=== PATIENT | female | born 1970 | race Caucasian/White ===

== ENCOUNTER 2016-09-25 16:05 | Inpatient (IN) | payer MEDICAID, OTHER ==
--- NOTE | 2016-09-25 17:12 | ED ---
Psych HPI - General Source: patient, RN notes reviewed Mode of arrival: ambulatory <Manuela Valdes - Last Filed: 09/25/16 19:59> <Pradip Blanco - Last Filed: 09/25/16 23:16> - General Chief Complaint: Psychiatric Symptoms Stated Complaint: psych eval Time Seen by Provider: 09/25/16 17:03 - History of Present Illness Initial Comments: 46 year old female presents emergency department chief complaint of visual hallucinations. Patient states that she was recently hospitalized. Patient states she was sent home on Haldol. Patient states at home although is causing her to have episodes of diarrhea having episodes of psychosis. Patient states she's imagining things she's having visual hallucinations. Patient does admit to history of suicidal ideation but states she is not suicidal at this time. Patient states sometimes in the med she feels as if she is hearing voices. Patient states she is an alcoholic and she has been drinking because the Haldol has caused her some any problems for her psychiatric illnesses are increasing and she does not know the difference. Patient denies any concerns for any acute medical issues.Patient denies any recent fever, chills, shortness of breath, chest pain, back pain, abdominal pain, nausea vomiting, numbness or tingling, dysuria or hematuria, constipation or diarrhea, headaches or visual changes, or any other current symptoms. (Manuela Valdes) - Related Data Home Medications Medication Instructions Recorded Confirmed Ondansetron [Zofran] 4 mg PO BID PRN 07/15/16 09/25/16 Pregabalin [Lyrica] 200 mg PO TID 08/21/16 09/25/16 Dicyclomine [Bentyl] 20 mg PO QID 08/24/16 09/25/16 Ergocalciferol [Vitamin D2 50,000 unit PO MO 08/24/16 09/25/16 (DRISDOL)] Polyethylene Glycol 3350 [Miralax] 17 gm PO BID PRN 08/24/16 09/25/16 lamoTRIgine [LaMICtal] 100 mg PO QAM 08/24/16 09/25/16 Folic Acid 1 mg PO DAILY 09/25/16 09/25/16 Hydrocortisone [Cortef] 5 mg PO HS 09/25/16 09/25/16 Hydrocortisone [Cortef] 15 mg PO QAM 09/25/16 09/25/16 Thiamine [Vitamin B-1] 100 mg PO DAILY 09/25/16 09/25/16 Previous Rx's Medication Instructions Recorded QUEtiapine [SEROquel] 300 mg PO HS #90 tab 05/30/16 Sertraline [Zoloft] 200 mg PO HS #60 tab 05/30/16 tiZANidine HCL [Zanaflex] 4 mg PO Q8HR PRN #90 tab 07/15/16 Haloperidol [Haldol] 5 mg PO TID #90 tab 08/29/16 LORazepam [Ativan] 1 mg PO TID #30 tab 08/29/16 Nicotine 14Mg/24Hr Patch [Habitrol] 1 patch TRANSDERM DAILY #30 patch 08/29/16 Pantoprazole [Protonix] 40 mg PO AC-BID tablet. 08/29/16 busPIRone HCl [Buspar] 20 mg PO TID tab 08/29/16 lamoTRIgine [LaMICtal] 300 mg PO HS tab 08/29/16 Allergies Allergy/AdvReac Type Severity Reaction Status Date / Time No Known Allergies Allergy Verified 09/25/16 18:02 Review of Systems ROS Other: All systems not noted in ROS Statement are negative. <Manuela Valdes - Last Filed: 09/25/16 19:59> ROS Other: All systems not noted in ROS Statement are negative. <Pradip Blanco - Last Filed: 09/25/16 23:16> ROS Statement: Those systems with pertinent positive or pertinent negative responses have been documented in the HPI. 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",ADRENAL INSUFFICIENCY,ULCER, HYPOGLYCEMIA, chronic back pain, herniated discs L4-L5, sponylosis spine, spurs in back, neck pain History of Any Multi-Drug Resistant Organisms: None Reported, Unobtainable Past Surgical History: Bariatric Surgery, Hernia Repair, Uterine Ablation Additional Past Surgical History / Comment(s): ROUY EN Y GASTRIC SURGERY, laparoscopy, PAIN CLINIC PROCEDURES Past Anesthesia/Blood Transfusion Reactions: No Reported Reaction Past Psychological History: Anxiety, Bipolar, Depression Additional Psychological History / Comment(s): HX ALCOHOL AND RX DRUG ABUSE Smoking Status: Unknown if ever smoked Past Alcohol Use History: Unable to Obtain Additional Past Alcohol Use History / Comment(s): Pt started smoking as a teen and is a 2 ppd smoker. Past Drug Use History: Unable to Obtain - Past Family History Mother Family Medical History: Chest Pain / Angina, Myocardial Infarction (AR) Additional Family Medical History / Comment(s): Mother is an alcoholic. She has heart problems. Had open heart surgery. Father Additional Family Medical History / Comment(s): Father is an alcoholic. Brother(s) Family Medical History: Cancer Additional Family Medical History / Comment(s): TESTICULAR. <Manuela Valdes - Last Filed: 09/25/16 19:59> General Exam Limitations: no limitations Head exam: Present: atraumatic, normocephalic, normal inspection Neck exam: Present: normal inspection. Absent: tenderness, meningismus, lymphadenopathy Respiratory exam: Present: normal lung sounds bilaterally. Absent: respiratory distress, wheezes, rales, rhonchi, stridor Cardiovascular Exam: Present: regular rate, normal rhythm, normal heart sounds. Absent: systolic murmur, diastolic murmur, rubs, gallop, clicks GI/Abdominal exam: Present: soft, normal bowel sounds. Absent: distended, tenderness, guarding, rebound, rigid Neurological exam: Present: alert, oriented X3, CN II-XII intact. Absent: motor sensory deficit Psychiatric exam: Present: anxious Skin exam: Present: warm, dry, intact, normal color. Absent: rash <Manuela Valdes - Last Filed: 09/25/16 19:59> Procedures <Manuela Valdes - Last Filed: 09/25/16 19:59> <Pradip Blanco - Last Filed: 09/25/16 23:16> - Procedures Initial comment: This case will be signed out to Dr. Blanco. (Manuela Valdes) Medical Decision Making <Manuela Valdes - Last Filed: 09/25/16 19:59> <Pradip Blanco - Last Filed: 09/25/16 23:16> - Medical Decision Making 46-year-old female presents to the emergency department with a chief complaint of visual hallucinations. (Manuela Valdes) The patient was evaluated by the psychiatric nurse who spoke with the psychiatrist. The patient be admitted to 3 W. The patient signing in. Psychiatric nurse discussed with the psychiatrist her current medication list and he states the patient can have her normal evening dose of medications but at this time however all will not be given. Dr. Blanco (Pradip Blanco) - Lab Data Lab Results 09/25/16 Range/Units 17:14 Urine Opiates Screen Not Detected (NotDetected) Ur Oxycodone Screen Not Detected (NotDetected) Urine Methadone Screen Not Detected (NotDetected) Ur Propoxyphene Screen Not Detected (NotDetected) Ur Barbiturates Screen Not Detected (NotDetected) U Tricyclic Antidepress Detected H (NotDetected) Ur Phencyclidine Scrn Not Detected (NotDetected) Ur Amphetamines Screen Not Detected (NotDetected) U Methamphetamines Scrn Not Detected (NotDetected) U Benzodiazepines Scrn Not Detected (NotDetected) Urine Cocaine Screen Not Detected (NotDetected) U Marijuana (THC) Screen Not Detected (NotDetected) Disposition <Manuela Valdes - Last Filed: 09/25/16 19:59> <Pradip Blanco - Last Filed: 09/25/16 23:16> Clinical Impression: Major depression Disposition: TRANSFER TO PSYCH HOSP/UNIT Condition: Serious
[2016-09-25] MEDS ORDERED: tiZANidine 4 MG TAB PO PRN (23:16)
[2016-09-25] MEDS ORDERED: HYDROCORTISONE 10 MG TAB PO SCH (23:30)
[2016-09-25] MEDS ORDERED: NICOTINE 14MG/24HR PATCH TRANSDERM SCH (23:30)
[2016-09-25] MEDS ORDERED: busPIRone HCl 10 MG TAB PO SCH (23:30)
[2016-09-25] MEDS ORDERED: lamoTRIgine 100 MG TAB PO SCH (23:30)
[2016-09-25] MEDS ORDERED: QUEtiapine 100 MG TAB PO SCH (23:30)
[2016-09-25] MEDS ORDERED: PREGABALIN 100 MG CAP PO SCH (23:30)
[2016-09-25] MEDS ORDERED: LORazepam 1 MG TAB PO SCH (23:30)
[2016-09-25] MEDS ORDERED: SERTRALINE 100 MG TAB PO SCH (23:30)
[2016-09-26] MEDS ORDERED: ZIPRASIDONE 20 MG VIAL IM PRN (00:55)
[2016-09-26] MEDS ORDERED: MAGNESIUM HYDROXIDE 2,400 MG/10 ML CUP PO PRN (00:55)
[2016-09-26] MEDS ORDERED: MAG HYDROX/AL HYDROX/SIMETH 30 ML CUP PO PRN (00:55)
[2016-09-26] MEDS ORDERED: LORazepam 2 MG/ML SYRINGE IM PRN (01:10)
[2016-09-26] MEDS ORDERED: POLYETHYLENE GLYCOL 3350 17 GM POWD.PACK PO PRN ×2 (01:25→19:47)
[2016-09-26 02:39] VITALS: BMI 24.8
[2016-09-26] MEDS ORDERED: DICYCLOMINE 20 MG TAB PO SCH ×2 (09:00)
[2016-09-26] MEDS ORDERED: FOLIC ACID 1 MG TAB PO SCH (09:00)
[2016-09-26] MEDS ORDERED: HALOPERIDOL 5 MG TAB PO SCH (09:00)
[2016-09-26] MEDS ORDERED: busPIRone HCl 10 MG TAB PO SCH (09:00)
[2016-09-26] MEDS ORDERED: lamoTRIgine 100 MG TAB PO SCH ×2 (09:00→21:00)
[2016-09-26] MEDS: PANTOPRAZOLE 40 MG TABLET PO SCH ×2 (09:12→17:01)
[2016-09-26] MEDS: PREGABALIN 100 MG CAP PO SCH ×2 (09:13→20:42)
[2016-09-26] MEDS: HYDROCORTISONE 10 MG TAB PO SCH ×2 (09:13→20:43)
[2016-09-26] MEDS: NICOTINE 14MG/24HR PATCH TRANSDERM SCH (09:13)
[2016-09-26] MEDS: tiZANidine 4 MG TAB PO PRN (09:14)
[2016-09-26] MEDS: LORazepam 1 MG TAB PO PRN ×2 (09:14→14:45)
[2016-09-26] MEDS ORDERED: DICYCLOMINE 20 MG TAB PO PRN (10:11)
[2016-09-26] MEDS ORDERED: QUEtiapine 25 MG TAB PO PRN (10:20)
[2016-09-26] MEDS: THIAMINE 100 MG TAB PO SCH (13:08)
[2016-09-26] MEDS: FOLIC ACID 1 MG TAB PO SCH (13:08)
[2016-09-26] MEDS: ACETAMINOPHEN TAB 325 MG TAB PO PRN (14:46)
[2016-09-26] MEDS: GABAPENTIN 100 MG CAP PO SCH ×2 (17:00→21:57)
[2016-09-26] MEDS: busPIRone HCl 5 MG TAB PO SCH ×2 (17:00→21:56)
[2016-09-26] MEDS ORDERED: PANTOPRAZOLE 40 MG TABLET PO SCH (20:00)
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
[2016-09-26] MEDS: QUEtiapine 100 MG TAB PO SCH (20:42)
[2016-09-26] MEDS ORDERED: HYDROCORTISONE 10 MG TAB PO SCH (21:00)
[2016-09-26] MEDS ORDERED: PRAZOSIN 1 MG CAP PO SCH (21:00)
[2016-09-26] MEDS ORDERED: SERTRALINE 100 MG TAB PO SCH (21:00)
[2016-09-27] MEDS: PANTOPRAZOLE 40 MG TABLET PO SCH ×2 (08:00→15:30)
[2016-09-27] MEDS: CITALOPRAM HYDROBROMIDE 20 MG TAB PO SCH (08:00)
[2016-09-27] MEDS: HYDROCORTISONE 10 MG TAB PO SCH ×2 (08:01→21:08)
[2016-09-27] MEDS: PREGABALIN 100 MG CAP PO SCH ×2 (08:01→21:09)
[2016-09-27] MEDS: busPIRone HCl 5 MG TAB PO SCH ×3 (08:01→21:10)
[2016-09-27] MEDS: GABAPENTIN 100 MG CAP PO SCH (08:01)
[2016-09-27] MEDS: NICOTINE 14MG/24HR PATCH TRANSDERM SCH (08:02)
[2016-09-27] MEDS: ACETAMINOPHEN TAB 325 MG TAB PO PRN ×4 (08:03→22:10)
--- NOTE | 2016-09-27 08:48 | CONS ---
DATE OF CONSULTATION: 09/26/2016 REASON FOR CONSULTATION: Medical management requested by Dr. Bailey. CONSULTATION: This is 46-year-old patient of Dr. Hensley whose chronic stable medical conditions include fibromyalgia, osteoarthritis, seizure activity, last one being a month and half ago. She also describes ( ) chronic adrenal insufficiency, L4-5 disc disease. The patient presented with visual hallucinations seeing elephants and rattle snakes. Also feels depressed, anxious. Hence, she presented to the ER. She was recently in the psych unit. She has had suicide ideation in the past, but not currently. Rarely, she has been hearing voices. Patient is doing binge drinking until the last admission. She said since she was discharged she did one episode of binge drinking. She also tried to cut back on smoking. REVIEW OF SYSTEMS: CONSTITUTIONAL: Tired. HEENT: None. RESPIRATORY: None. CARDIOVASCULAR: None. GASTROINTESTINAL: None. GENITOURINARY: None. MUSCULOSKELETAL: Aches and pains in different joints. DERMATOLOGICAL: None. HEMATOLOGICAL: None. LYMPHATIC: None. PSYCHIATRY: As above. NEUROLOGICAL: None. PAST MEDICAL HISTORY: Fibromyalgia, osteoarthritis, epilepsy, adrenal insufficiency, peptic ulcer disease, chronic back pain, herniated disc L4-5, neck pain. PAST SURGICAL HISTORY: Bariatric surgery, hernia repair, uterine ablation, Pam-en-Y gastric bypass surgery, ( ) procedures. PAST PSYCH HISTORY: Bipolar disorder. SOCIAL HISTORY: The patient smokes, mainly smokes 2 packs a day up until very recently and down to 1/2 pack a day. Patient is binge drinker. Since last discharge drank four vodka shooters. Family history of testicular cancer. HOME MEDICATIONS: 1. Zanaflex 4 mg p.o. q.8 p.r.n. 2. Lamictal 300 mg p.o. q.h.s. and 100 mg in the morning. 3. BuSpar 20 mg p.o. t.i.d. 4. Thiamine 100 mg p.o. daily. 5. Zoloft 200 mg q.h.s. 6. Seroquel 300 mg p.o. q.h.s. 7. Lyrica 200 mg p.o. t.i.d. 8. MiraLAX 17 grams p.o. b.i.d. p.r.n. 9. Protonix 40 mg p.o. b.i.d. 10. Zofran 4 mg b.i.d. p.r.n. 11. Nicotine patch. 12. Ativan 1 mg p.o. t.i.d. 13. Cortef 50 mg in the morning, 5 mg in the evening. 14. Haldol 5 mg p.o. t.i.d. 15. Folic acid 1 mg p.o. daily. 16. Vitamin D2 50,000 units on Friday. 17. Bentyl 20 mg p.o. q.i.d. p.r.n. ALLERGIES: None. On examination, temperature 98.2, pulse 95, respiration 16, blood pressure 109/59, pulse ox 97% on room air. GENERAL APPEARANCE: Average build, lying in bed, depressed appearing. EYES: Pupils equal. Conjunctivae normal. HEENT: Oral cavity normal. NECK: JVD not raised. Mass not palpable. RESPIRATORY: Effort normal. Lungs are clear. CARDIOVASCULAR: First and second sounds normal. No edema. ABDOMEN: Soft, nontender. Liver and spleen not palpable. LYMPHATIC: No lymph nodes palpable in the neck or axillae. PSYCHIATRY: Answering questions. Mood and affect depressed appearing. NEUROLOGICAL: Pupils equal. Cranial nerves grossly intact. Power and sensation grossly intact. INVESTIGATIONS: Urine drug screen positive for tricyclics. ASSESSMENT: 1. Chronic fibromyalgia. 2. Epilepsy disorder type unknown. 3. Chronic adrenal insufficiency. 4. Chronic L4-5 disc herniation. 5. Chronic nicotine dependence in an active cigarette smoker. 6. Binge alcohol drinking. 7. Bipolar disorder, depression with psychosis. PLAN: Patient's home medications will be resumed. Antipsychotic medications per Psychiatrist. Patient advised against smoking. Nicotine patch to continue. Thank you Dr. Bailey.
[2016-09-27] MEDS ORDERED: THIAMINE 100 MG TAB PO SCH (09:00)
[2016-09-27] MEDS ORDERED: lamoTRIgine 100 MG TAB PO SCH (09:00)
[2016-09-27] MEDS: LORazepam 1 MG TAB PO PRN ×3 (09:02→22:11)
[2016-09-27 10:25] LABS: ALT 38 U/L (9-52); AST 27 U/L (14-36); Alkaline Phosphatase 95 U/L (38-126); Anion Gap 14 mmol/L; Blood Urea Nitrogen 12 mg/dL (7-17); Carbon Dioxide 18 mmol/L (22-30); Chloride 107 mmol/L (98-107); Glucose 262 mg/dL (74-99); Non-African American GFR(MDRD) >60 (>60 ml/min/1.73 sqM); Potassium 4.1 mmol/L (3.5-5.1); Sodium 139 mmol/L (137-145); Total Bilirubin 0.3 mg/dL (0.2-1.3); Total Protein 5.9 g/dL (6.3-8.2)
[2016-09-27] MEDS: THIAMINE 100 MG TAB PO SCH (12:53)
[2016-09-27] MEDS: FOLIC ACID 1 MG TAB PO SCH (12:53)
[2016-09-27] MEDS: tiZANidine 4 MG TAB PO PRN (13:19)
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
[2016-09-27] MEDS: GABAPENTIN 300 MG CAP PO SCH ×2 (15:30→21:10)
[2016-09-27] MEDS: NICOTINE 21MG/24HR PATCH TRANSDERM SCH (15:30)
[2016-09-27] MEDS: QUEtiapine 100 MG TAB PO SCH (21:09)
[2016-09-28] MEDS: PANTOPRAZOLE 40 MG TABLET PO SCH ×2 (08:11→16:10)
[2016-09-28] MEDS: busPIRone HCl 5 MG TAB PO SCH ×3 (08:11→20:37)
[2016-09-28] MEDS: GABAPENTIN 300 MG CAP PO SCH ×3 (08:11→16:09)
[2016-09-28] MEDS: CITALOPRAM HYDROBROMIDE 20 MG TAB PO SCH (08:11)
[2016-09-28] MEDS: PREGABALIN 100 MG CAP PO SCH ×2 (08:11→13:00)
[2016-09-28] MEDS: HYDROCORTISONE 10 MG TAB PO SCH ×2 (08:12→20:37)
[2016-09-28] MEDS: ACETAMINOPHEN TAB 325 MG TAB PO PRN ×3 (09:06→18:44)
[2016-09-28] MEDS: LORazepam 1 MG TAB PO PRN ×3 (09:07→18:44)
[2016-09-28] MEDS: NICOTINE 21MG/24HR PATCH TRANSDERM SCH (09:47)
[2016-09-28 10:32] LABS: Amorphous Sediment,Urine Rare /hpf; Appearance,Urine Cloudy (Clear); Bacteria,Urine Rare /hpf; Bilirubin,Urine Negative (Negative); Glucose,Urine (UA) Trace (Negative); Ketones,Urine Negative (Negative); Leukocyte Esterase,Urine Negative (Negative); Nitrite,Urine Negative (Negative); PH, Urine 5.5 (5.0-8.0); Particle Count 7983; Protein,Urine Negative (Negative); RBC,Urine 3 /hpf (0-5); Specific Gravity,Urine 1.007 (1.001-1.035); Squamous Epithelial Cell,Urine 35 /hpf (0-4); UA Billing (MACRO vs. MICRO) MICRO; Urobilinogen,Urine <2.0 mg/dL (<2.0); WBC,Urine 5 /hpf (0-5)
[2016-09-28] MEDS: THIAMINE 100 MG TAB PO SCH (11:29)
[2016-09-28] MEDS: tiZANidine 4 MG TAB PO PRN ×2 (11:29→18:45)
[2016-09-28] MEDS: FOLIC ACID 1 MG TAB PO SCH (11:29)
[2016-09-28] MEDS ORDERED: GABAPENTIN 300 MG CAP PO SCH (15:00)
--- NOTE | 2016-09-28 15:05 | P.PN ---
Progress Note - Text SUBJECTIVE: Mr. Gonzalez complained of back pain, neck pain and headache. She alleged the current medications including Zanaflex, Lyrica, and gabapentin are not effective. We discussed treatment options and I explained my reluctance to increase our and additional medications to her medication regimen. We discussed options and agreed to change the dosing of gabapentin to 3 times a day with meals and Lyrica to twice a day with meals. OBJECTIVE: She presented as a thin depressed appearing somatically preoccupied 46-year-old female. She maintained eye contact and attended to the interview. She had no distinguishing features or prominent physical abnormalities. She had a distressed facial expression. She showed slight psychomotor retardation but no abnormal movements. Her speech was spontaneous with increased rate but normal rhythm and volume. She had no articulation difficulties. Her affect was dysphoric consisting of mixture of anxiety and depression. She described wishes but denied suicidal ideation , plan or intent. She denied homicidal ideation. She expressed depressive cognitions including hopelessness, helplessness and worthlessness. She feels overwhelmed by her chronic pain. She ruminates about her physical problems but denied obsessions or compulsions. She did not express ideas reference or paranoid ideation. Her thinking was concrete but her associations were coherent and logical. She denied hallucinations and did not appear to be responding to internal stimuli. ASSESSMENT: She is somatically preoccupied and complains of pain unrelieved by her current medical treatment. She she complains of depression and anxiety symptoms that she related to the severity of her pain. PLAN: Change gabapentin to 3 times a day before meals and Lyrica 2 twice a day before meals. Continue other medications as ordered. Encourage participation in therapeutic groups and activities. Evaluate clinical status and response to treatment daily basis.
[2016-09-28] MEDS: QUEtiapine 100 MG TAB PO SCH (20:38)
[2016-09-29] MEDS: ACETAMINOPHEN TAB 325 MG TAB PO PRN ×3 (01:50→18:52)
[2016-09-29] MEDS: LORazepam 1 MG TAB PO PRN ×3 (01:50→18:52)
[2016-09-29] MEDS: NICOTINE 21MG/24HR PATCH TRANSDERM SCH (08:07)
[2016-09-29] MEDS: HYDROCORTISONE 10 MG TAB PO SCH ×2 (08:08→21:00)
[2016-09-29] MEDS: busPIRone HCl 5 MG TAB PO SCH ×3 (08:09→20:59)
[2016-09-29] MEDS: CITALOPRAM HYDROBROMIDE 20 MG TAB PO SCH (08:09)
[2016-09-29] MEDS: GABAPENTIN 300 MG CAP PO SCH ×3 (08:09→16:34)
[2016-09-29] MEDS: PANTOPRAZOLE 40 MG TABLET PO SCH ×2 (08:09→16:36)
[2016-09-29] MEDS: PREGABALIN 100 MG CAP PO SCH ×2 (08:09→11:31)
[2016-09-29] MEDS: THIAMINE 100 MG TAB PO SCH (11:31)
[2016-09-29] MEDS: FOLIC ACID 1 MG TAB PO SCH (11:31)
--- NOTE | 2016-09-29 13:34 | P.PN ---
Progress Note - Text SUBJECTIVE: Mrs. Morris stated that she "feels terrible". She complained of headache, continued neck and back pain only modest 3 with the father current dose of Lyrica and Neurontin. In addition she complained of cold symptoms including nasal congestion cough and sore throat. She complained about her outpatient physicians have changed her pain medications. She requested an increase in a dose of Neurontin. She did not request other pain medications included opioid pain medication. OBJECTIVE: She appeared as a thin and anxious 46-year-old female. She was somatically preoccupied. She maintained eye contact and attended to the interview. She had no distinguishing features or prominent physical abnormalities. She had a distressed facial expression. She was alert and oriented to person, place and time. She was restless and fidgety in her chair during the interview. Her speech was spontaneous with normal rate, rhythm and volume. Her affect was dysphoric consisting of mixture of anxiety, depression and anger. Her affect was appropriate. She denied suicidal ideation or wishes. She denied homicidal ideation. She expressed depressive cognitions such as hopelessness and worthlessness. She ruminates about her health and her continued pain. She did not expressed ideas reference or paranoid ideation. Her thinking was concrete but her associations were coherent and logical. She denied hallucinations and did not appear to be responding to internal stimuli. She has had minimal alcohol withdrawal symptoms with CIWA scores less than 12. ASSESSMENT: She remains somatically preoccupied and pain focused. She has minimal alcohol withdrawal symptoms. PLAN: Increased Neurontin to 600 mg by mouth twice a day before meals. Continue twice-daily dosing of Lyrica, Seroquel 300 mg at bedtime and 25 mg twice a day, Celexa 20 mg daily and lorazepam 4 mg by mouth/IM for alcohol withdrawal.
[2016-09-29] MEDS: ONDANSETRON 4 MG TAB PO PRN (14:31)
[2016-09-29] MEDS ORDERED: GABAPENTIN 300 MG CAP PO SCH (17:30)
[2016-09-29] MEDS: QUEtiapine 100 MG TAB PO SCH (20:59)
[2016-09-30] MEDS: ACETAMINOPHEN TAB 325 MG TAB PO PRN ×2 (01:45→18:59)
[2016-09-30] MEDS: LORazepam 1 MG TAB PO PRN ×2 (01:47→18:59)
[2016-09-30] MEDS: ONDANSETRON 4 MG TAB PO PRN (02:42)
[2016-09-30] MEDS: tiZANidine 4 MG TAB PO PRN ×2 (02:44→19:29)
[2016-09-30] MEDS: GABAPENTIN 300 MG CAP PO SCH ×2 (07:13→16:42)
[2016-09-30] MEDS: PREGABALIN 100 MG CAP PO SCH ×2 (07:13→22:35)
[2016-09-30] MEDS: NICOTINE 21MG/24HR PATCH TRANSDERM SCH (09:30)
[2016-09-30] MEDS: CITALOPRAM HYDROBROMIDE 20 MG TAB PO SCH (09:32)
[2016-09-30] MEDS: PANTOPRAZOLE 40 MG TABLET PO SCH ×2 (09:32→16:40)
[2016-09-30] MEDS: busPIRone HCl 5 MG TAB PO SCH ×3 (09:32→22:36)
[2016-09-30] MEDS: HYDROCORTISONE 10 MG TAB PO SCH ×2 (09:33→22:36)
[2016-09-30] MEDS ORDERED: PREGABALIN 100 MG CAP PO ONE (10:15)
[2016-09-30] MEDS: MELOXICAM 7.5 MG TAB PO SCH (10:22)
[2016-09-30] MEDS: THIAMINE 100 MG TAB PO SCH (12:15)
[2016-09-30] MEDS: FOLIC ACID 1 MG TAB PO SCH (12:15)
[2016-09-30] MEDS ORDERED: PREGABALIN 100 MG CAP PO STA (13:08)
--- NOTE | 2016-09-30 13:58 | P.PN ---
Subjective Principal diagnosis: t SUBJECTIVE: Patient complained of back pain, neck pain and headache. Patient does not feel that Neurontin and Lyrica controlling her pain ,she rates her pain 8/10 ,10 being the worse, We discussed treatment options and her substance abuse history ,she replied "I am clean for many years ,even I was sober from alcohol since 08/23",she denies any suicidal or homicidal ideation OBJECTIVE: She presented somatically preoccupied . She maintained eye contact and attended to the interview. She had no distinguishing features or prominent physical abnormalities. She had a distressed facial expression. She showed slight psychomotor retardation but no abnormal movements. Her speech was spontaneous with increased rate but normal rhythm and volume. She had no articulation difficulties. Her affect is blunted She denied suicidal ideation , plan or intent. She denied homicidal ideation. She expressed anxiety and excessive worries. She feels overwhelmed by her chronic pain. She ruminates about her physical problems but denied obsessions or compulsions. She did not express ideas reference or paranoid ideation. Her insight to her alcohol use is limited ASSESSMENT: She is somatically preoccupied and complains of pain unrelieved by her current medical treatment. She has been requesting 3-4 mg ATIVAN PRN on daily basis since her admission ,trying to justify it by "Being on 1 mg Ativan TID at home" PLAN:1) Increase Lyrica and continue Neurontin ,same dose ,add Mobic for pain , will avoid any habit forming medication 2) Continue Celexa and Seroquel ,limit setting on her drug seeking for Benzodiazepine ,I discussed with vini addiction Objective - Vital Signs Vital signs: Vital Signs Temp 97.5 F L 09/30/16 02:54 Pulse 94 09/30/16 02:54 Resp 18 09/30/16 02:54 BP 110/65 09/30/16 02:54 Pulse Ox 97 09/26/16 14:42 - Labs CBC & Chem 7: 09/27/16 08:51
[2016-09-30] MEDS ORDERED: PREGABALIN 100 MG CAP PO SCH ×2 (16:00→21:00)
[2016-09-30] MEDS: QUEtiapine 100 MG TAB PO SCH (22:35)
[2016-10-01] MEDS: tiZANidine 4 MG TAB PO PRN (04:02)
[2016-10-01] MEDS: LORazepam 1 MG TAB PO PRN (04:02)
[2016-10-01] MEDS: ACETAMINOPHEN TAB 325 MG TAB PO PRN (04:02)
[2016-10-01 06:33] VITALS: BP 96/54; PULSE 60; RESP 14; TEMP 98
[2016-10-01] MEDS: GABAPENTIN 300 MG CAP PO SCH (07:10)
[2016-10-01] MEDS: PREGABALIN 100 MG CAP PO SCH (09:30)
[2016-10-01] MEDS: NICOTINE 21MG/24HR PATCH TRANSDERM SCH (09:30)
[2016-10-01] MEDS: HYDROCORTISONE 10 MG TAB PO SCH (09:30)
[2016-10-01] MEDS: MELOXICAM 7.5 MG TAB PO SCH (09:31)
[2016-10-01] MEDS: CITALOPRAM HYDROBROMIDE 20 MG TAB PO SCH (09:31)
[2016-10-01] MEDS: busPIRone HCl 5 MG TAB PO SCH (09:31)
[2016-10-01] MEDS: PANTOPRAZOLE 40 MG TABLET PO SCH (09:31)
--- NOTE | 2016-10-02 12:07 | DS ---
DATE OF ADMISSION: 09/25/2016 DATE OF DISCHARGE: 10/01/2016 CONSULTING PROVIDER: Patient was seen by Dr. Mahad Tran on September 26. CONSULT REASON: For medical management. DO YOU WANT CONSULTING PROVIDER NOTIFIED: Yes. ADMITTING DIAGNOSES: 1. Bipolar disorder, type II, depressed. 2. Anxiety disorder. 3. Alcohol use disorder. DISCHARGE DIAGNOSES: 1. Bipolar disorder, type II, depressed. 2. Anxiety disorder. 3. Alcohol use disorder. BRIEF SUMMARY OF THE ADMISSION NOTE: The patient was admitted to the mental health unit from the emergency room for depression and suicidal ideation and alcohol intoxication. Please for complete evaluation refer to my initial history and physical examination dictated on September 26. HOSPITAL COURSE: The patient was admitted to the mental health unit on voluntary basis. Once she was admitted I did review with her, her past history and treatment option and according to her she has been on Zoloft and lamotrigine for the last couple of years and did not feel that it was effective. So I discontinued patient's Zoloft and lamotrigine. Also, I did discontinue haloperidol as she was taking 5 mg 3 times a day for hallucination and anxiety. I did cut the buspirone from 20 mg 3 times a day to just 5 mg 3 times a day. I continued the patient on Seroquel 300 mg at bedtime as mood stabilizer and I restarted her on her other medication the Cortef and Lyrica for her chronic pain. During her stay, we did cover her from alcohol detox, however, she was minimizing her drinking saying "It was only one day after I had been sober since August 23". Patient was very somatic preoccupied during her stay, but she was able to participate in group therapy and activity therapy and she did agree to start citalopram for anxiety and depression and will add Neurontin for chronic pain and anxiety. I had lengthy discussion with her regarding ( ) addiction of her alcohol use and her prescription of lorazepam given to her in outpatient department and she did verbalize understanding to this. Patient had family meeting with her estranged and school social worker and it seems that he is very supportive and he did feel comfortable with our postdischarge plan. MENTAL STATUS EXAMINATION: At the time of her discharge, the patient is casually dress female. Her hygiene is much better than the time of admission. Her speech is spontaneous, non-pressured and coherent. Her thought process is linear and goal directed. She denied any homicidal or suicidal ideation or plan. She does not feel hopeless or helpless. She is still complaining of chronic pain, but she is aware that based on her past history of addiction she has to be away from any ( ) pain medication. There is no evidence of hypomania. There is no evidence of psychosis. Her insight and judgement are improving. Cognitive ability stable as she is alert and oriented to person, place and date. There is no verbal or physical aggression during her stay. Patient does not have access to any firearms. PLAN: The patient was discharged to return home to stay with her mother. Patient will continue follow-up appointment at [facility] for medication management and individual psychotherapy. Patient was given one month supply for: 1. Citalopram or Celexa 20 mg daily. 2. Neurontin 600 twice a day. 3. Seroquel 300 mg at bedtime. 4. BuSpar 5 mg 3 times a day. Patient to continue on her other medications that include hydrocortisone or Cortef, vitamin D and folic acid. Patient was instructed to not using Ativan prescribed to her in the outpatient setting. Patient was instructed to abstain completely from alcohol. Prognosis fair with continued treatment and abstinence from alcohol.
== END 2016-10-01 10:08 | disposition home or self-care (01) | DRG 885 ==
LOC: EC 16:05 → 3MHU 23:38
PROVIDERS: ADMIT Psychiatry & Neurology Psychiatry; ATTEND Psychiatry & Neurology Psychiatry
DX: F31.81 Bipolar II disorder (principal); E27.40 Unspecified adrenocortical insufficiency; R45.851 Suicidal ideations; F10.239 Alcohol dependence with withdrawal, unspecified; F10.229 Alcohol dependence with intoxication, unspecified; F17.210 Nicotine dependence, cigarettes, uncomplicated; F41.9 Anxiety disorder, unspecified; F43.10 Post-traumatic stress disorder, unspecified; F51.5 Nightmare disorder; G40.909 Epilepsy, unspecified, not intractable, without status epilepticus; G89.4 Chronic pain syndrome; M19.90 Unspecified osteoarthritis, unspecified site; M51.26 Other intervertebral disc displacement, lumbar region; M79.7 Fibromyalgia; Z63.8 Other specified problems related to primary support group; Z79.52 Long term (current) use of systemic steroids; Z81.1 Family history of alcohol abuse and dependence; Z81.8 Family history of other mental and behavioral disorders; Z82.49 Family history of ischemic heart disease and other diseases of the circulatory system; Z87.11 Personal history of peptic ulcer disease; Z91.410 Personal history of adult physical and sexual abuse; Z98.84 Bariatric surgery status; Z79.899 Other long term (current) drug therapy
CPT/HCPCS: 80053; 80306; 81001; 82075; 84443; 93005; 99285

== ENCOUNTER → 2016-11-11 | Outpatient (CLI) | payer OTHER ==
[2016-11-11 14:17] VITALS: BP 120/75; PULSE 81; RESP 16
--- NOTE | 2016-11-11 14:34 | P.PN ---
Progress Note - Text Patient returns for followup for chronic back pain with radiation to bilateral lower extremities, R > L. Patient underwent bilateral lumbar MBB in August, which provided >70%relief for 5-6 hours' interval; she was scheduled for repeat lumbar MBB in 10/2016 but states that she was an inpatient on psych unit during this. Patient continues on Lyrica medications for pain with some relief. Patient denies adverse drug effects from medications. Today, pt denies new- onset weakness, bowel/bladder incontinence, or any other signs or symptoms of cauda equina syndrome. There are no signs of acute intoxication, and no indications of medication diversion or overuse. In addition to above, 13-point review of systems is also negative for chest pain , shortness of breath, changes in vision, changes in hearing, new onset weakness , abdominal pain, diarrhea, extreme fatigue, malaise, fever, skin changes, homicidal or suicidal ideation, or bowel or bladder incontinence. Vital Signs: Reviewed in EMR Gen: WDWN, AAOx3, NAD HEENT: NCAT, EOMI, hearing grossly normal Pulm: resp unlabored Abd: soft, NT, ND Neck: supple, trachea midline ROM in flexion lumbar spine: reduced ROM in extension lumbar spine: reduced Lumbar paravertebral tenderness: + Facet loading: + bilateral SI joint tenderness: + R > L Nathaniel's test: + R > L Straight leg raise: + RLE at 35 degrees Neuro: CN II-XII grossly intact, muscle strength lower extremities PRESERVED Imaging: Reviewed in EMR Assessment: 1. lumbar spondylosis 2. lumbar DDD 3. chronic pain syndrome Plan: 1. Explanation: Opioid and psychological risk scores were reviewed. Diagnoses , prognoses, and multiple treatment options including but not limited to physical therapy, interventional therapies, adjuvant medical therapies, narcotic medication therapies, and surgery were discussed with the patient and all questions were answered to the patient's satisfaction. 2. Opioid agreement: no opioids prescribed, patient continues on Lyrica, patient counseled not to overuse/abuse this medication 3. Counseling: The patient was counseled extensively on SMOKING CESSATION, BODY MASS INDEX, EXERCISE. Specifically, the patient was instructed regarding the importance of smoking cessation, obesity, and exercise in the context of both chronic pain and overall health. 4. Procedures: repeat bilateral lumbar MBB, consider using steroids at next visit if patient is not still using them chronically 5. Consultations: None 6. Investigations: None 7. Medications: started Topamax and baclofen 8. Disposition: f/u for procedure as scheduled. Will send documentation to patient's psychiatrist at [facility] as these neuropathic pain medications may also affect her mood. Patient has history of alcoholism and multiple suicide attempts and is thus not a candidate for narcotic therapies. PQRS measures: 1-Patient's medications are documented in the chart. 2-Tobacco use is positive, counseling given 3-Patient has not had a pneumococcal vaccine. 4-Advanced care planning discussed, patient unable to give. 5-Opioid contract NOT signed with the patient. 6-Pain positive, follow-up visit or procedure scheduled 7-Patient's blood pressure measured and documented, and WNL. 8-Patient's weight was measured, and body mass index within the normal limits. 9-Patient WAS NOT identified as an unhealthy alcohol user.
== END | disposition home or self-care (01) ==
LOC: PNWHC3 13:43
PROVIDERS: ATTEND Anesthesiology
DX: G89.4 Chronic pain syndrome (principal); M47.896 Other spondylosis, lumbar region; M51.36 Other intervertebral disc degeneration, lumbar region; F17.200 Nicotine dependence, unspecified, uncomplicated; Z71.3 Dietary counseling and surveillance; Z79.899 Other long term (current) drug therapy
CPT/HCPCS: 99211

== ENCOUNTER 2017-01-16 11:12 | Day surgery (SDC) | payer OTHER ==
[2017-01-15 11:41] VITALS: BMI 27.3
[~2017-01-16 11:12] MED LIST: LACTATED RINGERS 1,000 ML IV SCH
[2017-01-16 11:25] VITALS: RESP 16; TEMP 97.8
[2017-01-16] MEDS ORDERED: LIDOCAINE 1% 20 ML VIAL (10MG/ML) FOR IV START INTRADERMA ONE (11:30)
[2017-01-16] MEDS ORDERED: TRIAMCINOLONE ACETONIDE 40 MG/ML 1 ML VIAL ONE (12:24)
[2017-01-16] MEDS ORDERED: BUPIVACAINE (PF) 0.5% 30 ML VIAL ONE (12:24)
[2017-01-16] MEDS ORDERED: fentaNYL (PF) 50 MCG/ML 2 ML AMP ONE (12:24)
[2017-01-16] MEDS ORDERED: MIDAZOLAM 2 MG/2 ML VIAL ONE (12:24)
--- NOTE | 2017-01-16 13:08 | P.PCN ---
Date of Procedure: 01/16/17 Procedure(s) Performed: PREOPERATIVE DIAGNOSIS: 1-Lumbar Spondylosis with Facet Arthropathy without myelopathy. POSTOPERATIVE DIAGNOSIS: 1- Lumbar Spondylosis with Facet Arthropathy without myelopathy. PROCEDURES : Right Radiofrequency thermocoagulation, L3-L4, L4-L5, and L5-S1 medial branch, with fluoroscopic guidance ANESTHESIA: IV sedation with versed 2 mg and fentaneyl 100 mcg and local infiltration with lidocaine 1% 6 ml EBL: Minimal PROCEDURE INDICATION: The patient with low back pain secondary to lumbar facet arthropathy who had more than 50% relief of her pain with previous diagnostic lumbar medial branch block with bupivacaine. PROCEDURE DESCRIPTION / TECHNIQUE: The patient was seen and identified in the preoperative area. Risks, benefits, complications, including but not limited to risk of infection ,bleeding , allergic reactions to the medications and no complete pain releife , and alternatives were discussed with the patient, the patient agreed to proceed with the procedure and signed the consent. IV was started. Vital signs remained stable throughout the procedure. Patient was taken to the OR and time out was completed. The patient was placed in the prone position on the procedure table. The lumber area was prepped and draped in the usual sterile fashion. . Vital signs were closely monitored during the procedure .IV sedation was used during the procedure to decrease patients anxiety. Using AP and then oblique fluoroscopy, the ``eye of the Braulio dog corresponding to the connection between the superior and transverse articular processes of right L3, L4, and L5 were identified, marked, and localized with 1 % lidocaine. Subsequently, a 18 -qf radiofrequency cannula with a 10- mm active tip was advanced guided by fluoroscopy to each of the ``eyes of the Braulio dog at right L3, L4, and L5. Each site then underwent sensory testing at 50 Hz and 0 to 1 volt and motor testing at 2.5 Hz and 0 to 3 volt with local stimulation, but no radicular symptoms down the legs. Thereafter the right L3-4, L4-5, and L5-S1 sites underwent radiofrequency thermocoagulation at 80 degrees celsius for 90 seconds after injecting 0.5 ml of PF lidocaine 1%. then After the thermocoagulation done , 1 ml of the block solution containing Kenalog 40 mg and 3 ml of marain 0.5% was injected at the right L3- 4 , L4-5 , and L5-S1, levels after negative aspiration of CSF and blood and with no paresthesias. Cannulas were retracted while injecting lidocaine 1% until the needle is out.. At the end of the procedure, the skin was cleansed and bandages were applied. COMPLICATIONS: No acute complications. DISPOSITION / PLANS: The patient was placed in a supine position and transferred to the recovery area in a stable condition for observation and was discharged from the recovery room after meeting discharge criteria. Home discharge instructions given to the patient by the staff. The patient was reexamined prior to discharge. The patient will schedule a follow up in the clinic in 2-4 weeks.
--- NOTE | 2017-01-16 13:12 | FL ---
Fluoroscopy HISTORY: Pain 19 seconds fluoroscopy time supplied to the referring clinician. 3 intraoperative C-arm images docum ent the procedure. See dictated report from anesthesia.
[2017-01-16] MEDS ORDERED: HYDROmorphone 2 MG/ML 1 ML SYRINGE IVP STA (13:32)
[2017-01-16] MEDS ORDERED: KETOROLAC 30 MG/ML 1 ML VIAL IVP STA ×2 (13:32→13:40)
[2017-01-16] MEDS ORDERED: HYDROmorphone 1 MG/ML 1 ML SYRINGE IVP STA ×2 (13:39→14:15)
[2017-01-16 14:44] VITALS: BP 152/91; PULSE 68
[2017-01-16] MEDS ORDERED: IV FLUID CONTINUATION 1,000 ML IV ONE (14:44)
[2017-01-16] MEDS ORDERED: KETOROLAC 30 MG/ML 1 ML VIAL IVP SCH (18:00)
== END 2017-01-16 14:51 | disposition home or self-care (01) ==
LOC: ORPAIN 11:12
PROVIDERS: ATTEND Specialist
DX: M47.816 Spondylosis without myelopathy or radiculopathy, lumbar region (principal); M46.96 Unspecified inflammatory spondylopathy, lumbar region
CPT/HCPCS: 81025; 64635; 64636; 99152; 99153; J2250; J3301; J3010; J1885; J1170

== ENCOUNTER 2018-04-28 11:34 | Day surgery (SDC) | payer OTHER ==
[2018-04-28] MEDS ORDERED: SODIUM CHLORIDE 0.9% 1,000 ML in EMPTY BAG 1 BAG IV ONE (11:48)
[2018-04-28 12:12] VITALS: PULSE 75; RESP 20; TEMP 98.3
[2018-04-28 12:43] LABS: Anisocytosis Slight; Basophils # (A) 0.1 k/uL (0-0.2); Basophils % (A) 2 %; Eosinophils # (A) 0.1 k/uL (0-0.7); Eosinophils % (A) 3 %; HGB 12.2 gm/dL (11.4-16.0); Hypochromasia Moderate; Lymphocytes # (A) 1.7 k/uL (1.0-4.8); Lymphocytes % (A) 36 %; MCH 25.4 pg (25.0-35.0); MCHC 30.6 g/dL (31.0-37.0); MCV 83.2 fL (80.0-100.0); Mean Platelet Volume 6.9; Monocytes # (A) 0.3 k/uL (0-1.0); Monocytes % (A) 7 %; Neutrophils # (A) 2.4 k/uL (1.3-7.7); Neutrophils % (A) 51 %; Platelet Count 327 k/uL (150-450); RDW 17.6 % (11.5-15.5); WBC 4.7 k/uL (3.8-10.6)
[2018-04-28 12:46] LABS: Anion Gap 7 mmol/L; Blood Urea Nitrogen 14 mg/dL (7-17); Calcium 8.7 mg/dL (8.4-10.2); Carbon Dioxide 24 mmol/L (22-30); Chloride 108 mmol/L (98-107); Glucose 88 mg/dL (74-99); Potassium 3.8 mmol/L (3.5-5.1); Sodium 139 mmol/L (137-145)
[2018-04-28] MEDS ORDERED: SODIUM CHLORIDE 0.9% 1,000 ML IV ONE (14:56)
[2018-04-28] MEDS ORDERED: LIDOCAINE 2% INJ 20 MG/ML SQ ONE (14:58)
[2018-04-28 15:28] LABS: O2 Sat Blood Gas 74.1 %
[2018-04-28] MEDS ORDERED: ACETAMINOPHEN TAB 325 MG TAB PO PRN (15:28)
[2018-04-28] MEDS ORDERED: ACETAMINOPHEN IV (For NPO) 1,000 MG in EMPTY BAG 1 BAG IVPB ONE (15:28)
[2018-04-28] MEDS ORDERED: HYDROcodone/APAP 5-325MG 1 EACH TAB PO PRN (15:28)
[2018-04-28 15:30] LABS: O2 Sat Blood Gas 94.2 %
[2018-04-28 15:32] LABS: O2 Sat Blood Gas 68.1 %
[2018-04-28 15:34] LABS: O2 Sat Blood Gas 78.1 %
--- NOTE | 2018-04-28 15:36 | P.PCN ---
Preoperative Diagnosis: Diagnosis Elevated PA pressures shortness of breath history of smoking evaluation for pulmonary hypertension referred by pulmonary hypertension specialist Right heart catheterization The right groin was prepped and draped as per protocol and 8-[place] venous sheath was placed in the right femoral vein. Via this, a [place] balloon flotation catheter was placed in the pulmonary artery. The catheter was also placed via a PFO into the left atrium for measurements PA pressures 24/13/18 Pulmonary capillary wedge pressures 9/10/8 L of mercury Right ventricular pressures 32/-2/4 Right atrial pressures 7/6/5 Left atrial pressures 8/3/1 L of mercury Oxygen sampling was performed LA 94.2% RA 68.1% RV 74.1% PA 78.1 Sheaths were removed at the end of the procedure hemostasis was assured Impression No evidence for pulmonary hypertension PFO present Normal left atrial pressures
[2018-04-28 19:04] VITALS: BP 127/81
== END 2018-04-28 21:20 | disposition home or self-care (01) ==
LOC: CATHEP 11:34 → 3OBS 15:21 → CATHEP 21:20
PROVIDERS: ATTEND Internal Medicine Clinical Cardiac Electrophysiology
DX: I27.20 Pulmonary hypertension, unspecified (principal); R06.02 Shortness of breath; R93.1 Abnormal findings on diagnostic imaging of heart and coronary circulation; I10 Essential (primary) hypertension; F17.210 Nicotine dependence, cigarettes, uncomplicated; Z82.49 Family history of ischemic heart disease and other diseases of the circulatory system
CPT/HCPCS: 93451; 80048; 85018; 82810; 85025; 81025; C1894; C1769; J2001

== ENCOUNTER 2018-08-11 12:45 | Inpatient (IN) | payer OTHER ==
[2018-08-11] MEDS ORDERED: SODIUM CHLORIDE 0.9% 500 ML 500 ML IV ONE (13:14)
[2018-08-11] MEDS ORDERED: SODIUM CHLORIDE 0.9% 1,000 ML IV ONE (13:14)
[2018-08-11] MEDS ORDERED: HYDROCORTISONE SUCCINATE 100 MG/2 ML VIAL IV STA (13:22)
[2018-08-11 13:45] LABS: Anisocytosis Slight; Basophils # (A) 0.1 k/uL (0-0.2); Basophils % (A) 1 %; Eosinophils # (A) 0.1 k/uL (0-0.7); Eosinophils % (A) 1 %; HCT 41.5 % (34.0-46.0); Hypochromasia Moderate; Lymphocytes # (A) 1.2 k/uL (1.0-4.8); Lymphocytes % (A) 26 %; MCH 25.8 pg (25.0-35.0); MCHC 31.3 g/dL (31.0-37.0); MCV 82.6 fL (80.0-100.0); Mean Platelet Volume 7.1; Monocytes # (A) 0.3 k/uL (0-1.0); Monocytes % (A) 6 %; Neutrophils # (A) 3.1 k/uL (1.3-7.7); Neutrophils % (A) 65 %; Platelet Count 238 k/uL (150-450); RBC 5.02 m/uL (3.80-5.40); RDW 16.7 % (11.5-15.5); WBC 4.8 k/uL (3.8-10.6)
[2018-08-11 14:01] LABS: Glucose,Whole Blood 99 mg/dL (75-99)
[2018-08-11 14:06] LABS: ALT 58 U/L (9-52); AST 98 U/L (14-36); Alcohol 29 mg/dL; Alkaline Phosphatase 106 U/L (38-126); Anion Gap 11 mmol/L; Blood Urea Nitrogen 18 mg/dL (7-17); Calcium 9.4 mg/dL (8.4-10.2); Carbon Dioxide 22 mmol/L (22-30); Chloride 113 mmol/L (98-107); Creatine Kinase 128 U/L (30-135); Glucose 102 mg/dL (74-99); Potassium 4.2 mmol/L (3.5-5.1); Sodium 146 mmol/L (137-145); Total Bilirubin 0.3 mg/dL (0.2-1.3); Total Protein 6.8 g/dL (6.3-8.2)
[2018-08-11 14:07] LABS: INR 1.1 (<1.2); Prothrombin Time 10.4 sec (9.0-12.0)
[2018-08-11 14:10] LABS: Appearance,Urine Clear (Clear); Bilirubin,Urine Negative (Negative); Blood,Urine Negative (Negative); Color,Urine Light Yellow; Glucose,Urine (UA) Negative (Negative); Ketones,Urine Negative (Negative); Leukocyte Esterase,Urine Negative (Negative); Nitrite,Urine Negative (Negative); Protein,Urine Trace (Negative); Specific Gravity,Urine 1.011 (1.001-1.035); Urobilinogen,Urine <2.0 mg/dL (<2.0)
[2018-08-11 14:15] LABS: Partial Thromboplastin Time 21.7 sec (22.0-30.0)
[2018-08-11 14:19] LABS: Creatine Kinase MB 2.3 ng/mL (0.0-2.4); Troponin I <0.012 ng/mL (0.000-0.034)
[2018-08-11 14:38] LABS: Amphetamine Screen,Urine Not Detected (NotDetected); Benzodiazepines Screen,Urine Not Detected (NotDetected); Cocaine Screen,Urine Not Detected (NotDetected); Opiate Screen,Urine Not Detected (NotDetected); Phencyclidine Screen,Urine Not Detected (NotDetected); Urn Cannabinoid Scrn Not Detected (NotDetected)
[2018-08-11 14:39] LABS: Barbiturate Screen,Urine Not Detected (NotDetected); Methadone Screen, Urine Not Detected (NotDetected); Oxycodone Screen, Urine Not Detected (NotDetected); Tricyclic Antidepressant,Urine Detected (NotDetected)
--- NOTE | 2018-08-11 14:41 | CT ---
EXAMINATION TYPE: CT brain shelbi bowser DATE OF EXAM: 08/11/2018 COMPARISON: 12/15/2012 HISTORY: Patient poor historian. CT DLP: 1476.[address] Brain: Unenhanced CT of the brain was performed. The ventricles, basal cisterns and sulci overlying the cerebral convexities demonstrate a normal appe arance. There is no evidence for intracranial hemorrhage or sulcal effacement. No mass effects are seen. If symptoms persist consider MRI. Osseous calvarium is intact. IMPRESSION: No acute intracranial process CT Cervical Spine: Unenhanced CT of the cervical spine was performed with bone and soft tissue window settings submitted . Coronal and sagittal reconstruction is obtained. There is normal alignment and prevertebral soft tissues. I do not see evidence for fracture or sublu xation. No significant degenerative changes are present. The lung apices are clear. IMPRESSION: No evidence for acute fracture or subluxation of the cervical spine.
--- NOTE | 2018-08-11 14:52 | ED ---
General Adult HPI - General Source: family, EMS, RN notes reviewed Mode of arrival: EMS Limitations: altered mental status <Marino Rae - Last Filed: 08/11/18 15:07> <Lester Gleason - Last Filed: 08/11/18 15:45> - General Chief complaint: Alcohol Stated complaint: ETOH/Altered Time Seen by Provider: 08/11/18 12:52 - History of Present Illness Initial comments: This a 47-year-old female presents emergency department via EMS for altered mental status. Patient reportedly relapsed on alcohol intake. Patient was found to have alcohol with her by . They do state that she was is intoxicated and this is causing her to be altered though she has not had any more alcohol and she's had no improvement. She cannot complete a sentence she is only moaning and groaning. It is unclear she actually fell or had some sort of injury. It is unclear she's actually taking her medications as directed. She does have known psychiatric disorders, blood pressure issues, adrenal insufficiency. Patient's had no reported fever they have noticed that she's not had any urine output or any bowel movements. Patient cannot provide any information. (Marino Rae) - Related Data Home Medications Medication Instructions Recorded Confirmed Hydrocortisone [Cortef] 5 mg PO HS 09/25/16 08/11/18 Hydrocortisone [Cortef] 15 mg PO QAM 09/25/16 08/11/18 Ergocalciferol (Vitamin D2) 50,000 unit PO MO 08/11/18 08/11/18 [Drisdol] Glycopyrrolate/Formoterol Fum 2 puff INHALATION RT-BID 08/11/18 08/11/18 [Bevespi Aerosphere Inhaler] Lisinopril [Prinivil] 5 mg PO DAILY 08/11/18 08/11/18 Methimazole [Tapazole] 5 mg PO Q8H 08/11/18 08/11/18 Modafinil [Provigil] 200 mg PO DAILY 08/11/18 08/11/18 Sennosides [Senna] 8.6 mg PO DAILY PRN 08/11/18 08/11/18 cloNIDine HCL [Catapres] 0.1 mg PO HS 08/11/18 08/11/18 Allergies Allergy/AdvReac Type Severity Reaction Status Date / Time No Known Allergies Allergy Verified 01/15/17 11:28 Review of Systems ROS Other: All systems not noted in ROS Statement are negative. <Marino Rae - Last Filed: 08/11/18 15:07> ROS Other: All systems not noted in ROS Statement are negative. <Lester Gleason - Last Filed: 08/11/18 15:45> ROS Statement: Those systems with pertinent positive or pertinent negative responses have been documented in the HPI. 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 ",ADRENAL INSUFFICIENCY, hx ULCER, "reaxctive"HYPOGLYCEMIA, herniated discs L4- L5, spondylosis spine, spurs in back, neck pain, heart murmer, varicose veins, IBS, History of Any Multi-Drug Resistant Organisms: None Reported Past Surgical History: Bariatric Surgery, Cholecystectomy, Hernia Repair, Uterine Ablation Additional Past Surgical History / Comment(s): ROUY EN Y GASTRIC SURGERY, laparoscopy, Past Anesthesia/Blood Transfusion Reactions: No Reported Reaction Past Psychological History: Anxiety, Bipolar, Depression, PTSD Smoking Status: Current every day smoker Past Alcohol Use History: Abuse Past Drug Use History: Unable to Obtain - Past Family History Mother Family Medical History: Chest Pain / Angina, Myocardial Infarction (RI) Additional Family Medical History / Comment(s): Mother is an alcoholic. She has heart problems. Had open heart surgery. Father Additional Family Medical History / Comment(s): Father is an alcoholic. Brother(s) Family Medical History: Cancer Additional Family Medical History / Comment(s): TESTICULAR. <Marino Rae - Last Filed: 08/11/18 15:07> General Exam Limitations: altered mental status General appearance: alert, in no apparent distress Head exam: Present: atraumatic, normocephalic, normal inspection Eye exam: Present: normal appearance, PERRL, EOMI. Absent: scleral icterus, conjunctival injection, periorbital swelling ENT exam: Present: mucous membranes dry. Absent: normal exam, mucous membranes moist Neck exam: Present: normal inspection, full ROM. Absent: tenderness, meningismus, lymphadenopathy Respiratory exam: Present: normal lung sounds bilaterally. Absent: respiratory distress, wheezes, rales, rhonchi, stridor Cardiovascular Exam: Present: regular rate, normal rhythm, normal heart sounds. Absent: systolic murmur, diastolic murmur, rubs, gallop, clicks GI/Abdominal exam: Present: soft, normal bowel sounds. Absent: distended, tenderness, guarding, rebound, rigid Neurological exam: Present: alert. Absent: oriented X3, CN II-XII intact ( Unable to assess all secondary to altered mental status) Skin exam: Present: warm, dry, intact, normal color. Absent: rash <Marino Rae - Last Filed: 08/11/18 15:07> Vital Signs 08/11/18 08/11/18 12:52 15:01 Temperature 96.9 F L Pulse Rate 91 81 Respiratory 16 18 Rate Blood Pressure 147/93 174/100 O2 Sat by Pulse 95 100 Oximetry EKG Findings - EKG Comments: EKG Findings:: EKG performed at 13:37 normal sinus rhythm with a rate of 93 TN 178 QRS 88 QT/QTC 414/[address] and T-wave <Marino Rae - Last Filed: 08/11/18 15:07> Medical Decision Making - Lab Data Result diagrams: 08/11/18 13:30 08/11/18 13:30 <Marino Rae - Last Filed: 08/11/18 15:07> - Lab Data Result diagrams: 08/11/18 13:30 08/11/18 13:30 <Lester Gleason - Last Filed: 08/11/18 15:45> - Medical Decision Making 47-year-old female presented emergency department for altered mental status. Patient does have blood alcohol 29 though this most likely not causing her altered mental status. She does have a history of seizures and medications found include tramadol. She may be post ictal causing her altered mental status and, nation of dehydration, medication noncompliance. She is supposed to be taking lithium and her lithium level is less than 0.2. Patient is more arousable, more responsive at this time though still altered. Labwork were reviewed which did not reveal any major abnormality's CT of the head and neck were obtained which did not reveal any acute intracranial hemorrhage or fracture. I did discuss case with Dr. Gleason, explain this to the patient's significant other in the room. (Marino Rae) Patient reevaluated and reexamined by myself, Dr. Gleason. Patient resting comfortably in bed. Patient does speak some words however there is some garbled speech and words are nonsensical. Etiology of altered mental status is unclear at this time. Patient could be suffering from post ictal state or potential stroke or other. Case was discussed in detail with Dr. Sam, who will admit for hospital call. Neurology will be placed on consult. (Lester Gleason) - Lab Data Lab Results 08/11/18 08/11/18 08/11/18 Range/Units 13:27 13:30 13:30 WBC (3.8-10.6) k/uL RBC (3.80-5.40) m/uL Hgb (11.4-16.0) gm/dL Hct (34.0-46.0) % MCV (80.0-100.0) fL MCH (25.0-35.0) pg MCHC (31.0-37.0) g/dL RDW (11.5-15.5) % Plt Count (150-450) k/uL Neutrophils % % Lymphocytes % % Monocytes % % Eosinophils % % Basophils % % Neutrophils # (1.3-7.7) k/uL Lymphocytes # (1.0-4.8) k/uL Monocytes # (0-1.0) k/uL Eosinophils # (0-0.7) k/uL Basophils # (0-0.2) k/uL Hypochromasia Anisocytosis PT (9.0-12.0) sec INR (<1.2) APTT (22.0-30.0) sec Sodium (137-145) mmol/L Potassium (3.5-5.1) mmol/L Chloride (98-107) mmol/L Carbon Dioxide (22-30) mmol/L Anion Gap mmol/L BUN (7-17) mg/dL Creatinine (0.52-1.04) mg/dL Est GFR (CKD-EPI)AfAm (>60 ml/min/1.73 sqM) Est GFR (CKD-EPI)NonAf (>60 ml/min/1.73 sqM) Glucose (74-99) mg/dL POC Glucose (mg/dL) 99 (75-99) mg/dL POC Glu Party Plan Sales Agent ID Demetria Farley Calcium (8.4-10.2) mg/dL Total Bilirubin (0.2-1.3) mg/dL AST (14-36) U/L ALT (9-52) U/L Alkaline Phosphatase (38-126) U/L Ammonia <9 (<30) umol/L Total Creatine Kinase 128 (30-135) U/L CK-MB (CK-2) 2.3 (0.0-2.4) ng/mL CK-MB (CK-2) Rel Index 1.8 Troponin I <0.012 (0.000-0.034) ng/mL Total Protein (6.3-8.2) g/dL Albumin (3.5-5.0) g/dL Urine Color Urine Appearance (Clear) Urine pH (5.0-8.0) Ur Specific [place] (1.001-1.035) Urine Protein (Negative) Urine Glucose (UA) (Negative) Urine Ketones (Negative) Urine Blood (Negative) Urine Nitrite (Negative) Urine Bilirubin (Negative) Urine Urobilinogen (<2.0) mg/dL Ur Leukocyte Esterase (Negative) Urine Opiates Screen (NotDetected) Ur Oxycodone Screen (NotDetected) Urine Methadone Screen (NotDetected) Ur Propoxyphene Screen (NotDetected) Ur Barbiturates Screen (NotDetected) U Tricyclic Antidepress (NotDetected) Ur Phencyclidine Scrn (NotDetected) Ur Amphetamines Screen (NotDetected) U Methamphetamines Scrn (NotDetected) U Benzodiazepines Scrn (NotDetected) [place] mmol/L Urine Cocaine Screen (NotDetected) U Marijuana (THC) Screen (NotDetected) Serum Alcohol mg/dL 08/11/18 08/11/18 08/11/18 Range/Units 13:30 13:30 13:30 WBC 4.8 (3.8-10.6) k/uL RBC 5.02 (3.80-5.40) m/uL Hgb 13.0 (11.4-16.0) gm/dL Hct 41.5 (34.0-46.0) % MCV 82.6 (80.0-100.0) fL MCH 25.8 (25.0-35.0) pg MCHC 31.3 (31.0-37.0) g/dL RDW 16.7 H (11.5-15.5) % Plt Count 238 (150-450) k/uL Neutrophils % 65 % Lymphocytes % 26 % Monocytes % 6 % Eosinophils % 1 % Basophils % 1 % Neutrophils # 3.1 (1.3-7.7) k/uL Lymphocytes # 1.2 (1.0-4.8) k/uL Monocytes # 0.3 (0-1.0) k/uL Eosinophils # 0.1 (0-0.7) k/uL Basophils # 0.1 (0-0.2) k/uL Hypochromasia Moderate Anisocytosis Slight PT 10.4 (9.0-12.0) sec INR 1.1 (<1.2) APTT 21.7 L (22.0-30.0) sec Sodium 146 H (137-145) mmol/L Potassium 4.2 (3.5-5.1) mmol/L Chloride 113 H (98-107) mmol/L Carbon Dioxide 22 (22-30) mmol/L Anion Gap 11 mmol/L BUN 18 H (7-17) mg/dL Creatinine 0.49 L (0.52-1.04) mg/dL Est GFR (CKD-EPI)AfAm >90 (>60 ml/min/1.73 sqM) Est GFR (CKD-EPI)NonAf >90 (>60 ml/min/1.73 sqM) Glucose 102 H (74-99) mg/dL POC Glucose (mg/dL) (75-99) mg/dL POC Glu Party Plan Sales Agent ID Calcium 9.4 (8.4-10.2) mg/dL Total Bilirubin 0.3 (0.2-1.3) mg/dL AST 98 H (14-36) U/L ALT 58 H (9-52) U/L Alkaline Phosphatase 106 (38-126) U/L Ammonia (<30) umol/L Total Creatine Kinase (30-135) U/L CK-MB (CK-2) (0.0-2.4) ng/mL CK-MB (CK-2) Rel Index Troponin I (0.000-0.034) ng/mL Total Protein 6.8 (6.3-8.2) g/dL Albumin 4.0 (3.5-5.0) g/dL Urine Color Urine Appearance (Clear) Urine pH (5.0-8.0) Ur Specific [place] (1.001-1.035) Urine Protein (Negative) Urine Glucose (UA) (Negative) Urine Ketones (Negative) Urine Blood (Negative) Urine Nitrite (Negative) Urine Bilirubin (Negative) Urine Urobilinogen (<2.0) mg/dL Ur Leukocyte Esterase (Negative) Urine Opiates Screen (NotDetected) Ur Oxycodone Screen (NotDetected) Urine Methadone Screen (NotDetected) Ur Propoxyphene Screen (NotDetected) Ur Barbiturates Screen (NotDetected) U Tricyclic Antidepress (NotDetected) Ur Phencyclidine Scrn (NotDetected) Ur Amphetamines Screen (NotDetected) U Methamphetamines Scrn (NotDetected) U Benzodiazepines Scrn (NotDetected) [place] mmol/L Urine Cocaine Screen (NotDetected) U Marijuana (THC) Screen (NotDetected) Serum Alcohol 29 mg/dL 08/11/18 08/11/18 Range/Units 13:30 13:54 WBC (3.8-10.6) k/uL RBC (3.80-5.40) m/uL Hgb (11.4-16.0) gm/dL Hct (34.0-46.0) % MCV (80.0-100.0) fL MCH (25.0-35.0) pg MCHC (31.0-37.0) g/dL RDW (11.5-15.5) % Plt Count (150-450) k/uL Neutrophils % % Lymphocytes % % Monocytes % % Eosinophils % % Basophils % % Neutrophils # (1.3-7.7) k/uL Lymphocytes # (1.0-4.8) k/uL Monocytes # (0-1.0) k/uL Eosinophils # (0-0.7) k/uL Basophils # (0-0.2) k/uL Hypochromasia Anisocytosis PT (9.0-12.0) sec INR (<1.2) APTT (22.0-30.0) sec Sodium (137-145) mmol/L Potassium (3.5-5.1) mmol/L Chloride (98-107) mmol/L Carbon Dioxide (22-30) mmol/L Anion Gap mmol/L BUN (7-17) mg/dL Creatinine (0.52-1.04) mg/dL Est GFR (CKD-EPI)AfAm (>60 ml/min/1.73 sqM) Est GFR (CKD-EPI)NonAf (>60 ml/min/1.73 sqM) Glucose (74-99) mg/dL POC Glucose (mg/dL) (75-99) mg/dL POC Glu Party Plan Sales Agent ID Calcium (8.4-10.2) mg/dL Total Bilirubin (0.2-1.3) mg/dL AST (14-36) U/L ALT (9-52) U/L Alkaline Phosphatase (38-126) U/L Ammonia (<30) umol/L Total Creatine Kinase (30-135) U/L CK-MB (CK-2) (0.0-2.4) ng/mL CK-MB (CK-2) Rel Index Troponin I (0.000-0.034) ng/mL Total Protein (6.3-8.2) g/dL Albumin (3.5-5.0) g/dL Urine Color Light Yellow Urine Appearance Clear (Clear) Urine pH 5.0 (5.0-8.0) Ur Specific [place] 1.011 (1.001-1.035) Urine Protein Trace H (Negative) Urine Glucose (UA) Negative (Negative) Urine Ketones Negative (Negative) Urine Blood Negative (Negative) Urine Nitrite Negative (Negative) Urine Bilirubin Negative (Negative) Urine Urobilinogen <2.0 (<2.0) mg/dL Ur Leukocyte Esterase Negative (Negative) Urine Opiates Screen Not Detected (NotDetected) Ur Oxycodone Screen Not Detected (NotDetected) Urine Methadone Screen Not Detected (NotDetected) Ur Propoxyphene Screen Not Detected (NotDetected) Ur Barbiturates Screen Not Detected (NotDetected) U Tricyclic Antidepress Detected H (NotDetected) Ur Phencyclidine Scrn Not Detected (NotDetected) Ur Amphetamines Screen Not Detected (NotDetected) U Methamphetamines Scrn Not Detected (NotDetected) U Benzodiazepines Scrn Not Detected (NotDetected) [place] <0.2 mmol/L Urine Cocaine Screen Not Detected (NotDetected) U Marijuana (THC) Screen Not Detected (NotDetected) Serum Alcohol mg/dL Disposition <Marino Rae - Last Filed: 08/11/18 15:07> <Lester Gleason - Last Filed: 08/11/18 15:45> Clinical Impression: Alcohol intoxication, Alcohol abuse, Altered mental status, Dehydration, Seizure disorder Disposition: ADMITTED IP TO THIS HOSP Condition: Fair
--- NOTE | 2018-08-11 15:02 | XR ---
EXAMINATION TYPE: XR chest 2V DATE OF EXAM: 08/11/2018 COMPARISON: Prior chest x-ray 05/01/2016 HISTORY: Altered mental status TECHNIQUE: Frontal and lateral views of the chest are obtained. FINDINGS: Patient is rotated. There is no focal air space opacity, pleural effusion, or pneumothorax seen. The cardiac silhouette size is within normal limits. The osseous structures are intact. IMPRESSION: No acute cardiopulmonary process. Follow-up as indicated.
[2018-08-11] MEDS ORDERED: THIAMINE 100 MG/ML 2 ML VIAL IM STA ×2 (15:15→16:46)
[2018-08-11] MEDS: SODIUM CHLORIDE 0.9% 1,000 ML IV SCH (15:45)
[2018-08-11] MEDS ORDERED: LORazepam 2 MG/ML INJ IV PRN ×2 (16:46→19:53)
[2018-08-11] MEDS: METHIMAZOLE 5 MG TAB PO SCH ×2 (16:57→22:47)
[2018-08-11] MEDS: THIAMINE 100 MG TAB PO SCH (17:39)
[2018-08-11] MEDS ORDERED: SENNOSIDES 8.6 MG TAB PO PRN (19:51)
[2018-08-11] MEDS ORDERED: cloNIDine HCL 0.1 MG TAB PO PRN (19:53)
[2018-08-11] MEDS ORDERED: HYDROCORTISONE 15 MG PO SCH (20:00)
[2018-08-11] MEDS ORDERED: NON-FORMULARY DRUG (Glycopyrrolate/Formoterol Fum [Bevespi Aerosphere Inhaler] 2 PUFF) INHALATION SCH (20:00)
[2018-08-11] MEDS ORDERED: HYDROCORTISONE 5 MG PO SCH (21:00)
[2018-08-11] MEDS ORDERED: cloNIDine HCL 0.1 MG TAB PO SCH (21:00)
--- NOTE | 2018-08-11 21:03 | HP ---
HISTORY AND PHYSICAL DATE OF SERVICE: 08/11/2018 CHIEF COMPLAINT: Change in mental status. HISTORY OF PRESENT ILLNESS: This 47-year-old woman with a past medical history of multiple medical problems, including COPD, fibromyalgia, DJD, seizure disorder, also has a history of significant psychiatric disorders and a history of alcohol abuse also. The patient again started to drink, according to the history, and EMS was called because of alcohol relapse and change in mental status. Patient was found to have alcohol by her and the patient apparently was intoxicated also. Because of change in mental status, the patient came to [facility] and was admitted for further evaluation and treatment. The patient is slightly sedated at this time, unable to give a coherent history. Most of the history is taken from my discussion with staff and the ER physician and review of the chart at this time. PAST MEDICAL HISTORY: 1. Chest pain. 2. COPD. 3. Fibromyalgia. 4. DJD. 5. Seizure disorder. 6. Bariatric surgery. 7. Cholecystectomy. 8. Anxiety. 9. Depression. 10.Bipolar depression. 11.PTSD. HOME MEDICATIONS: 1. Glycopyrrolate 2 puffs b.i.d. 2. Drisdol 50,000 p.o. Friday. 3. Senna 8.6 daily p.r.n. 4. Provigil 200 mg daily. 5. Tapazole 5 mg at bedtime. 6. Cortef 15 mg a.m. and 5 mg at bedtime. 7. Catapres 0.1 mg at bedtime. 8. Prinivil 5 mg p.o. b.i.d. ALLERGIES: NONE. Family history, social history, review of systems could not be taken. PHYSICAL EXAMINATION: Patient is stuporous at this time. The pulse is 81, blood pressure 174/100, respiration 18, temperature 96.9, pulse ox 100% on room air. HEENT: Conjunctivae normal. NECK: No jugular venous distention. CARDIOVASCULAR SYSTEM: S1, S2 muffled. RESPIRATORY SYSTEM: Breath sounds diminished at the bases. A few scattered rhonchi and crackles. ABDOMEN: Soft, non-tender. No mass palpable. LEGS: No edema. No swelling. NERVOUS SYSTEM: Diffusely weak. LABS: WBC 4.8, hemoglobin 13. INR is 1. Sodium 146. AST is 98, ALT is 58. ASSESSMENT: 1. Acute alcoholism, alcoholic intoxication. 2. Delirium tremens. 3. Increased AST, alcoholic hepatitis. 4. History of chronic obstructive pulmonary disease. 5. Fibromyalgia. 6. History of degenerative joint disease. 7. History of seizure disorder. 8. History of adrenal insufficiency. 9. History of hypoglycemia. 10.History of bariatric surgery. 11.History of cholecystectomy. 12.History of anxiety, bipolar, depression. 13.Post-traumatic stress disorder. RECOMMENDATIONS AND DISCUSSION: In this 47-year-old woman who presented with multiple complex medical issues, we will monitor the patient closely, continue the current medications, continue with symptomatic treatment. At this time I recommend continuing with DT precautions. Resume the home medications. Otherwise, repeat labs. Prognosis guarded because of multiple complex medical issues. Further recommendations to follow. JAMAAL / CRISTALN: [id number] /
[2018-08-11] MEDS: IPRATROPIUM 0.5 MG/2.5 ML NEBU INHALATION SCH (21:08)
[2018-08-11] MEDS: FORMOTEROL FUMARATE 20 MCG/2 ML NEBU INHALATION SCH (21:08)
[2018-08-11] MEDS: HEPARIN SODIUM,PORCINE 5,000 UNIT/ML 1 ML VIAL SQ SCH (21:34)
[2018-08-11] MEDS: cloNIDine HCL 0.1 MG TAB PO SCH (21:34)
[2018-08-11] MEDS: SODIUM CHLORIDE 0.9% 1,000 ML with POTASSIUM CHLORIDE 20 MEQ, MVI, ADULT NO.4 WITH VIT ... IV SCH ×5 (21:34)
[2018-08-11] MEDS: LORazepam 2 MG/ML INJ IV PRN (22:47)
--- NOTE | 2018-08-11 22:57 | P.CNNES ---
History of Present Illness Consult date: 08/11/18 History of Present Illness: The patient is a 47-year-old right-handed white female who was brought to the emergency room via EMS with altered mental status. Her found her in a confused state with alcohol intoxication. The patient has a history of EtOH abuse. She also has a history of seizure. It is unclear whether the seizures were related to alcohol. She is currently not on any anticonvulsant. There is no witnessed seizure. Patient is unable to give much of a history. History is obtained from the chart. Patient states she lives with her parents. She is unsure of how much she is currently drinking. EtOH level was 29. Drug screen was positive for tricyclics. CT of the brain was done in the emergency room and did not show any acute findings. CT of the cervical spine did not show fracture or subluxation. 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 ",ADRENAL INSUFFICIENCY, hx ULCER, "reaxctive"HYPOGLYCEMIA, herniated discs L4- L5, spondylosis spine, spurs in back, neck pain, heart murmer, uti-ecoli 2015, varicose veins, IBS,dx w/ms 6 months ago takes detaseron inj qod-last taken friday08-10-18 History of Any Multi-Drug Resistant Organisms: None Reported Past Surgical History: Bariatric Surgery, Cholecystectomy, Hernia Repair, Uterine Ablation Additional Past Surgical History / Comment(s): ROUY EN Y GASTRIC SURGERY, laparoscopy, Past Anesthesia/Blood Transfusion Reactions: No Reported Reaction Smoking Status: Current every day smoker - Past Family History Mother Family Medical History: Chest Pain / Angina, Coronary Artery Disease (CAD) Additional Family Medical History / Comment(s): alcoholic Father History Unknown: Yes Additional Family Medical History / Comment(s): Father is an alcoholic. Brother(s) Family Medical History: Cancer Additional Family Medical History / Comment(s): TESTICULAR. Medications and Allergies Home Medications Medication Instructions Recorded Confirmed Type Hydrocortisone [Cortef] 5 mg PO HS 09/25/16 08/11/18 History Hydrocortisone [Cortef] 15 mg PO QAM 09/25/16 08/11/18 History Ergocalciferol (Vitamin D2) 50,000 unit PO MO 08/11/18 08/11/18 History [Drisdol] Glycopyrrolate/Formoterol Fum 2 puff INHALATION RT-BID 08/11/18 08/11/18 History [Bevespi Aerosphere Inhaler] Lisinopril [Prinivil] 5 mg PO DAILY 08/11/18 08/11/18 History Methimazole [Tapazole] 5 mg PO Q8H 08/11/18 08/11/18 History Modafinil [Provigil] 200 mg PO DAILY 08/11/18 08/11/18 History Sennosides [Senna] 8.6 mg PO DAILY PRN 08/11/18 08/11/18 History cloNIDine HCL [Catapres] 0.1 mg PO HS 08/11/18 08/11/18 History Allergies Allergy/AdvReac Type Severity Reaction Status Date / Time No Known Allergies Allergy Verified 01/15/17 11:28 Physical Examination - Vital Signs Vital Signs: Vital Signs Temp Pulse Pulse Resp BP BP Pulse Ox 08/11/18 21:19 97.6 F 78 16 138/83 99 08/11/18 21:16 84 08/11/18 21:13 84 08/11/18 21:09 84 08/11/18 16:20 165/95 08/11/18 15:01 81 18 174/100 100 08/11/18 12:52 96.9 F L 91 16 147/93 95 Intake and Output 08/11/18 08/11/18 08/11/18 06:59 14:59 22:59 Intake Total 300 Output Total 1000 Balance -700 Intake: Intake, IV Titration 300 Amount Sodium Chloride 0.9% 1, 300 000 ml @ 100 mls/hr IV . Q10H [facility] Rx#:[id number] Output: Urine 1000 Uretheral (Carl) 1000 Other: Voiding Method Indwelling Catheter Weight 54.431 kg - Constitutional General appearance: disheveled - EENT EENT: PERRL - Respiratory Respiratory: lungs clear - Cardiovascular Cardiovascular: regular rate, normal S1, normal S2 - Neurologic Neurologic examination: Mental status: She was awake she was fidgety she was unable to focus she was anxious she was irritable she was oriented to person she was able to give her date of she knew the month was August the year was 2008 she thought she was in [place] she was able to add and subtract she was able to spell world. There was no aaphasia or dysarthria. The nerve examination: Cranial nerves II through XII grossly intact Motor examination: She moved all 4 extremities equally Sensory examination: Difficult to test Coordination: Difficult to test Gait: Could not be checked Results - Laboratory Findings CBC and BMP: 08/11/18 13:30 08/11/18 13:30 Abnormal Lab Findings: Abnormal Labs 08/11/18 08/11/18 08/11/18 13:30 13:30 13:30 RDW 16.7 H APTT 21.7 L Sodium 146 H Chloride 113 H BUN 18 H Creatinine 0.49 L Glucose 102 H AST 98 H ALT 58 H Urine Protein U Tricyclic Antidepress 08/11/18 13:54 RDW APTT Sodium Chloride BUN Creatinine Glucose AST ALT Urine Protein Trace H U Tricyclic Antidepress Detected H Assessment and Plan (1) Alcohol intoxication Current Visit: Yes Status: Acute SNOMED Code(s): 32726264 (2) Altered mental status Current Visit: Yes Status: Acute SNOMED Code(s): 996005749 Plan: The patient is a 47-year-old woman was found to be intoxicated and brought in by her ex-. She has a history of EtOH abuse. She has a past history of multiple other medical issues including PTSD, bipolar disease, adrenal insufficiency and history of gastric bypass. DT precautions are in place. She has had a CT of the brain which did not show any acute findings. She has a history of seizures in the past and it is unclear whether these were related to EtOH since she is not on any medication for seizure. Recommend EEG.
[2018-08-11] MEDS: HYDROCORTISONE SUCCINATE 100 MG/2 ML VIAL IV SCH (23:45)
[2018-08-12] MEDS: LORazepam 2 MG/ML INJ IV PRN ×2 (06:13→15:10)
[2018-08-12] MEDS: FORMOTEROL FUMARATE 20 MCG/2 ML NEBU INHALATION SCH ×2 (07:10→19:09)
[2018-08-12] MEDS: IPRATROPIUM 0.5 MG/2.5 ML NEBU INHALATION SCH ×4 (07:10→19:09)
[2018-08-12] MEDS: LISINOPRIL 5 MG TAB PO SCH (07:39)
[2018-08-12] MEDS: METHIMAZOLE 5 MG TAB PO SCH ×3 (07:39→23:17)
[2018-08-12] MEDS: HYDROCORTISONE SUCCINATE 100 MG/2 ML VIAL IV SCH ×3 (07:39→23:17)
[2018-08-12] MEDS: cloNIDine HCL 0.1 MG TAB PO SCH ×3 (07:39→21:26)
[2018-08-12] MEDS: HEPARIN SODIUM,PORCINE 5,000 UNIT/ML 1 ML VIAL SQ SCH ×2 (07:48→21:26)
[2018-08-12 09:23] LABS: Anisocytosis Slight; Basophils % (A) 1 %; Eosinophils % (A) 0 %; HCT 32.6 % (34.0-46.0); HGB 10.2 gm/dL (11.4-16.0); Hypochromasia Marked; Lymphocytes # (A) 1.8 k/uL (1.0-4.8); Lymphocytes % (A) 25 %; MCH 26.3 pg (25.0-35.0); MCHC 31.5 g/dL (31.0-37.0); MCV 83.6 fL (80.0-100.0); Mean Platelet Volume 6.9; Monocytes # (A) 0.3 k/uL (0-1.0); Monocytes % (A) 4 %; Neutrophils % (A) 69 %; Platelet Count 221 k/uL (150-450); RDW 16.7 % (11.5-15.5); WBC 7.2 k/uL (3.8-10.6)
[2018-08-12 09:31] LABS: ALT 36 U/L (9-52); AST 42 U/L (14-36); Albumin 2.9 g/dL (3.5-5.0); Alkaline Phosphatase 88 U/L (38-126); Anion Gap 6 mmol/L; Blood Urea Nitrogen 14 mg/dL (7-17); Calcium 8.6 mg/dL (8.4-10.2); Carbon Dioxide 23 mmol/L (22-30); Chloride 112 mmol/L (98-107); Glucose 158 mg/dL (74-99); Potassium 3.9 mmol/L (3.5-5.1); Sodium 141 mmol/L (137-145); Total Bilirubin 0.4 mg/dL (0.2-1.3); Total Protein 5.3 g/dL (6.3-8.2)
--- NOTE | 2018-08-12 10:35 | P.CN ---
Psychiatric Consult - . Consult date: 08/12/18 Consult:: 08/12/18 08:58 Mental status with history of psychiatric problems Assessment and Plan Assessment: HPI: This a 47-year-old female presents emergency department via EMS for altered mental status. Patient reportedly relapsed on alcohol intake. Patient was found to have alcohol with her by . They do state that she was is intoxicated and this is causing her to be altered though she has not had any more alcohol and she's had no improvement. She cannot complete a sentence she is only moaning and groaning. It is unclear she actually fell or had some sort of injury. It is unclear she's actually taking her medications as directed. She does have known psychiatric disorders, blood pressure issues, adrenal insufficiency. Patient's had no reported fever they have noticed that she's not had any urine output or any bowel movements. Patient cannot provide any information. - Related Data Home Medications Medication Instructions Recorded Confirmed Hydrocortisone [Cortef] 5 mg PO HS 09/25/16 08/11/18 Hydrocortisone [Cortef] 15 mg PO QAM 09/25/16 08/11/18 Ergocalciferol (Vitamin D2) 50,000 unit PO MO 08/11/18 08/11/18 [Drisdol] Glycopyrrolate/Formoterol Fum 2 puff INHALATION RT-BID 08/11/18 08/11/18 [Bevespi Aerosphere Inhaler] Lisinopril [Prinivil] 5 mg PO DAILY 08/11/18 08/11/18 Methimazole [Tapazole] 5 mg PO Q8H 08/11/18 08/11/18 Modafinil [Provigil] 200 mg PO DAILY 08/11/18 08/11/18 Sennosides [Senna] 8.6 mg PO DAILY PRN 08/11/18 08/11/18 cloNIDine HCL [Catapres] 0.1 mg PO HS 08/11/18 08/11/18 Allergies Allergy/AdvReac Type Severity Reaction Status Date / Time No Known Allergies Allergy Verified 01/15/17 11:28 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 ",ADRENAL INSUFFICIENCY, hx ULCER, "reaxctive"HYPOGLYCEMIA, herniated discs L4- L5, spondylosis spine, spurs in back, neck pain, heart murmer, varicose veins, IBS, History of Any Multi-Drug Resistant Organisms: None Reported Past Surgical History: Bariatric Surgery, Cholecystectomy, Hernia Repair, Uterine Ablation Additional Past Surgical History / Comment(s): ROUY EN Y GASTRIC SURGERY, laparoscopy, Past Anesthesia/Blood Transfusion Reactions: No Reported Reaction Past Psychological History: Anxiety, Bipolar, Depression, PTSD Smoking Status: Current every day smoker Past Alcohol Use History: Abuse Past Drug Use History: Unable to Obtain - Past Family History Mother Family Medical History: Chest Pain / Angina, Myocardial Infarction ([place]) Additional Family Medical History / Comment(s): Mother is an alcoholic. She has heart problems. Had open heart surgery. Father Additional Family Medical History / Comment(s): Father is an alcoholic. Brother(s) Family Medical History: Cancer Additional Family Medical History / Comment(s): TESTICULAR. Mental Status Examination - This is a 47-year-old female was brought in by her who was found intoxicated and did not know whether she had a seizure or not. She relapsed within last couple days on alcohol to the point of comatose. She is unable to participate in meaningful mental status examination and would benefit from the [facility] Psychiatric impression: Alcohol use disorder severe Psychiatric recommendations:[facility] protocol Thank you for the consult Markus Monaco D.O. PhD (1) Major depression Current Visit: No Status: Acute Code(s): F32.9 - MAJOR DEPRESSIVE DISORDER, SINGLE EPISODE, UNSPECIFIED SNOMED Code(s): 299033588 Time with Patient: Less than 30
[2018-08-12] MEDS: SODIUM CHLORIDE 0.9% 1,000 ML IV SCH ×2 (12:40→13:13)
[2018-08-12] MEDS: MULTIVITAMINS, THERA 1 EACH TAB PO SCH (13:13)
[2018-08-12] MEDS: THIAMINE 100 MG TAB PO SCH ×2 (13:13→15:13)
--- NOTE | 2018-08-12 15:58 | P.PN ---
Subjective 47-year-old admitted for alcohol withdrawal. Patient doesn't have any significant withdrawal symptoms patient received Ativan and sleeping and unable to provide much of history to me. Patient was evaluated by neurology and patient will undergo EEG. Patient appears to acute and chronic metabolic encephalopathy from alcoholism. Patient has significant psychiatric issues has stopped taking medications psychiatric is evaluating for possible admission to inpatient psych. Review of systems Unable to obtain Objective - Vital Signs Vital signs: Vital Signs Temp 98.9 F 08/12/18 12:42 Pulse 83 08/12/18 15:36 Resp 17 08/12/18 14:46 BP 129/73 08/12/18 12:42 Pulse Ox 97 08/12/18 12:42 Intake & Output 08/11/18 08/12/18 08/12/18 18:59 06:59 18:59 Intake Total 780 640 Output Total 1000 1000 Balance -1000 780 -360 Weight 54.431 kg Intake: Intake, IV Titration 300 Amount Sodium Chloride 0.9% 1, 300 000 ml @ 100 mls/hr IV . Q10H [facility] Rx#:[id number] Oral 480 640 Output: Urine 1000 1000 Uretheral (Carl) 1000 Other: Voiding Method Indwelling Catheter Indwelling Catheter Indwelling Catheter - Exam PHYSICAL EXAMINATION: GENERAL: Patient is drowsy sleepy unable to obtain history a piece to be bit lethargic HEENT: Pupils are round and equally reacting to light. EOMI. No scleral icterus. No conjunctival pallor. Normocephalic, atraumatic. No pharyngeal erythema. No thyromegaly. CARDIOVASCULAR: S1 and S2 present. No murmurs, rubs, or gallops. PULMONARY: Chest is clear to auscultation, no wheezing or crackles. ABDOMEN: Soft, nontender, nondistended, normoactive bowel sounds. No palpable organomegaly. MUSCULOSKELETAL: No joint swelling or deformity. EXTREMITIES: No cyanosis, clubbing, or pedal edema. NEUROLOGICAL: Gross neurological examination did not reveal any focal deficits. SKIN: No rashes. - Labs CBC & Chem 7: 08/12/18 08:42 08/12/18 08:42 Labs: Abnormal Lab Results - Last 24 Hours (Table) 08/12/18 08/12/18 Range/Units 08:42 08:42 Hgb 10.2 L (11.4-16.0) gm/dL Hct 32.6 L (34.0-46.0) % RDW 16.7 H (11.5-15.5) % Chloride 112 H (98-107) mmol/L Glucose 158 H (74-99) mg/dL AST 42 H (14-36) U/L Total Protein 5.3 L (6.3-8.2) g/dL Albumin 2.9 L (3.5-5.0) g/dL Microbiology - Last 24 Hours (Table) 08/11/18 13:30 Blood Culture - Preliminary Blood No Growth after 24 hours 08/11/18 13:54 Urine Culture - Preliminary Urine,Voided Assessment and Plan Plan: Alcohol withdrawal: Continue with the alcohol withdrawal protocol and patient is medically stable to be discharged to psychiatric floor -Acute alcoholic hepatitis expected to improve with cessation of alcohol -COPD without any significant exacerbation -Fibromyalgia -Anxiety bipolar and post traumatic stress disorder: Patent management as per psychiatric.
[2018-08-12] MEDS: SODIUM CHLORIDE 0.9% 1,000 ML with POTASSIUM CHLORIDE 20 MEQ, MVI, ADULT NO.4 WITH VIT ... IV SCH ×5 (16:59)
[2018-08-12 21:20] VITALS: RESP 16
[2018-08-12] MEDS: GABAPENTIN 300 MG CAP PO SCH (21:26)
[2018-08-13] MEDS: SODIUM CHLORIDE 0.9% 1,000 ML with POTASSIUM CHLORIDE 20 MEQ, MVI, ADULT NO.4 WITH VIT ... IV SCH ×10 (07:18→18:56)
[2018-08-13] MEDS: SODIUM CHLORIDE 0.9% 1,000 ML IV SCH ×3 (07:19→16:44)
[2018-08-13] MEDS: HYDROCORTISONE SUCCINATE 100 MG/2 ML VIAL IV SCH ×3 (08:45→23:20)
[2018-08-13] MEDS: NICOTINE 21MG/24HR PATCH TRANSDERM SCH (08:45)
[2018-08-13] MEDS: HEPARIN SODIUM,PORCINE 5,000 UNIT/ML 1 ML VIAL SQ SCH ×3 (08:45→20:20)
[2018-08-13] MEDS: LISINOPRIL 5 MG TAB PO SCH (08:45)
[2018-08-13] MEDS: GABAPENTIN 300 MG CAP PO SCH ×3 (08:45→21:36)
[2018-08-13] MEDS: cloNIDine HCL 0.1 MG TAB PO SCH ×2 (08:46→17:20)
[2018-08-13] MEDS: METHIMAZOLE 5 MG TAB PO SCH ×3 (08:46→20:21)
[2018-08-13 08:58] LABS: Anisocytosis Slight; Basophils % (A) 0 %; Eosinophils % (A) 0 %; HCT 35.9 % (34.0-46.0); Hypochromasia Marked; Lymphocytes # (A) 2.2 k/uL (1.0-4.8); Lymphocytes % (A) 36 %; MCH 25.9 pg (25.0-35.0); MCHC 30.8 g/dL (31.0-37.0); MCV 84.3 fL (80.0-100.0); Mean Platelet Volume 7.2; Monocytes # (A) 0.2 k/uL (0-1.0); Monocytes % (A) 4 %; Neutrophils # (A) 3.6 k/uL (1.3-7.7); Neutrophils % (A) 59 %; Platelet Count 239 k/uL (150-450); RBC 4.26 m/uL (3.80-5.40); RDW 16.6 % (11.5-15.5); WBC 6.1 k/uL (3.8-10.6)
[2018-08-13] MEDS: FORMOTEROL FUMARATE 20 MCG/2 ML NEBU INHALATION SCH ×2 (09:17→19:37)
[2018-08-13] MEDS: IPRATROPIUM 0.5 MG/2.5 ML NEBU INHALATION SCH ×4 (09:17→19:38)
[2018-08-13 09:21] LABS: ALT 34 U/L (9-52); AST 26 U/L (14-36); Albumin 2.9 g/dL (3.5-5.0); Alkaline Phosphatase 91 U/L (38-126); Anion Gap 5 mmol/L; Blood Urea Nitrogen 15 mg/dL (7-17); Calcium 8.5 mg/dL (8.4-10.2); Carbon Dioxide 24 mmol/L (22-30); Chloride 113 mmol/L (98-107); Glucose 102 mg/dL (74-99); Magnesium 1.8 mg/dL (1.6-2.3); Sodium 142 mmol/L (137-145); Total Bilirubin 0.5 mg/dL (0.2-1.3); Total Protein 5.4 g/dL (6.3-8.2)
[2018-08-13] MEDS: THIAMINE 100 MG TAB PO SCH ×2 (12:42→16:44)
[2018-08-13] MEDS: MULTIVITAMINS, THERA 1 EACH TAB PO SCH (12:42)
[2018-08-13] MEDS ORDERED: ACETAMINOPHEN TAB 325 MG TAB PO PRN (13:40)
[2018-08-13] MEDS: LORazepam 2 MG/ML INJ IV PRN ×3 (13:48→21:28)
[2018-08-13 13:55] VITALS: BMI 21.9
--- NOTE | 2018-08-13 16:29 | P.DS ---
Providers Date of admission: 08/11/18 15:39 Expected date of discharge: 08/13/18 Attending physician: Christopher Fuchs Consults: 08/11/18 15:14 Consult Physician Urgent Consulting Provider: Markus Monaco Consult Reason/Comments: Altered mental status, history of psychiatric disorders Do you want consulting provider notified?: Already Contacted 08/11/18 15:47 Consult Physician Urgent Consulting Provider: Anum Fall Consult Reason/Comments: ams Do you want consulting provider notified?: Yes Primary care physician: Stated None Hospital Course: Final Diagnoses Alcohol withdrawal,patient is medically stable to be discharged to psychiatric floor -Acute alcoholic hepatitis expected to improve with cessation of alcohol -COPD without any significant exacerbation -Fibromyalgia -Anxiety bipolar and post traumatic stress disorder: Patent management as per psychiatric. Hospital course:47-year-old admitted for alcohol withdrawal. Patient doesn' t have any significant withdrawal symptoms patient received Ativan and sleeping and unable to provide much of history to me. Patient was evaluated by neurology and patient will undergo EEG. Patient appears to acute and chronic metabolic encephalopathy from alcoholism. Patient has significant psychiatric issues has stopped taking medications psychiatric is evaluating for possible admission to inpatient psych.Petitioned by for mental health unit. No significant withdrawal. Sitter maintained at bedside. Anxiety, paranoia present. Patient is being discharged to mental health unit in a stable condition with guarded prognosis, pending psychiatry reevaluation. PHYSICAL EXAMINATION: GENERAL: Patient is alert and oriented 2, no acute distress HEENT: Pupils are round and equally reacting to light. EOMI. No scleral icterus. No conjunctival pallor. Normocephalic, atraumatic. No pharyngeal erythema. No thyromegaly. CARDIOVASCULAR: S1 and S2 present. No murmurs, rubs, or gallops. PULMONARY: Chest is clear to auscultation, no wheezing or crackles. ABDOMEN: Soft, nontender, nondistended, normoactive bowel sounds. No palpable organomegaly. MUSCULOSKELETAL: No joint swelling or deformity. EXTREMITIES: No cyanosis, clubbing, or pedal edema. NEUROLOGICAL: Gross neurological examination did not reveal any focal deficits. Speech clear SKIN: No rashes. The impression and plan of care has been dictated as directed. : I performed a history and examination of this patient, discussed the same with the dictator. I agree with the dictator's note ,documented as a scribe. Any additional findings or plans will be noted. Time taken: 35 minutes Patient Condition at Discharge: Stable Plan - Discharge Summary Discharge Rx Participant: Yes New Discharge Prescriptions: New Nicotine 21Mg/24Hr Patch [Habitrol] 1 patch TRANSDERM DAILY patch Acetaminophen Tab [Tylenol] 650 mg PO Q6HR PRN tab PRN Reason: Fever And/ Or Pain Folic Acid 1 mg PO DAILY #1 tablet Gabapentin [Neurontin] 600 mg PO TID cap Multivitamins, Thera [Multivitamin (formulary)] 1 each PO DAILY@1200 tab risperiDONE [RisperDAL] 0.25 mg PO BID tab Thiamine [Vitamin B-1] 100 mg PO DAILY tab Albuterol Inhaler [Ventolin Hfa Inhaler] 2 puff INHALATION RT-Q6H PRN #1 inhaler PRN Reason: Shortness Of Breath Carvedilol [Coreg] 3.125 mg PO BID-W/MEALS tab LORazepam [Ativan] 0.5 mg PO TID PRN 3 Days #9 tab PRN Reason: Anxiety Continue Hydrocortisone [Cortef] 5 mg PO HS Hydrocortisone [Cortef] 15 mg PO QAM Glycopyrrolate/Formoterol Fum [Bevespi Aerosphere Inhaler] 2 puff INHALATION RT-BID Ergocalciferol (Vitamin D2) [Drisdol] 50,000 unit PO MO Methimazole [Tapazole] 5 mg PO Q8H Lisinopril [Prinivil] 5 mg PO DAILY Sennosides [Senna] 8.6 mg PO DAILY PRN PRN Reason: Constipation Discontinued Modafinil [Provigil] 200 mg PO DAILY cloNIDine HCL [Catapres] 0.1 mg PO HS Discharge Medication List Hydrocortisone [Cortef] 5 mg PO HS 09/25/16 [History] Hydrocortisone [Cortef] 15 mg PO QAM 09/25/16 [History] Ergocalciferol (Vitamin D2) [Drisdol] 50,000 unit PO MO 08/11/18 [History] Glycopyrrolate/Formoterol Fum [Bevespi Aerosphere Inhaler] 2 puff INHALATION RT- BID 08/11/18 [History] Lisinopril [Prinivil] 5 mg PO DAILY 08/11/18 [History] Methimazole [Tapazole] 5 mg PO Q8H 08/11/18 [History] Sennosides [Senna] 8.6 mg PO DAILY PRN 08/11/18 [History] Acetaminophen Tab [Tylenol] 650 mg PO Q6HR PRN tab 08/13/18 [Rx] Albuterol Inhaler [Ventolin Hfa Inhaler] 2 puff INHALATION RT-Q6H PRN #1 inhaler 08/13/18 [Rx] Carvedilol [Coreg] 3.125 mg PO BID-W/MEALS tab 08/13/18 [Rx] Folic Acid 1 mg PO DAILY #1 tablet 08/13/18 [Rx] Gabapentin [Neurontin] 600 mg PO TID cap 08/13/18 [Rx] LORazepam [Ativan] 0.5 mg PO TID PRN 3 Days #9 tab 08/13/18 [Rx] Multivitamins, Thera [Multivitamin (formulary)] 1 each PO DAILY@1200 tab [Rx] Nicotine 21Mg/24Hr Patch [Habitrol] 1 patch TRANSDERM DAILY patch 08/13/18 [Rx] Thiamine [Vitamin B-1] 100 mg PO DAILY tab 08/13/18 [Rx] risperiDONE [RisperDAL] 0.25 mg PO BID tab 08/13/18 [Rx] Follow up Appointment(s)/Referral(s): None,Stated [Primary Care Provider] - 1-2 days Anum Fall MD [STAFF PHYSICIAN] - 2 Weeks (after dc from [facility]) Markus Monaco DO [Doctor of Osteopathic Medicine] - 08/13/18 Activity/Diet/Wound Care/Special Instructions: [facility] cbc,bmp in am Discharge Disposition: TRANSFER TO PSYCH HOSP/UNIT
[2018-08-13] MEDS: CARVEDILOL 3.125 MG TAB PO SCH (16:44)
[2018-08-13] MEDS ORDERED: ACETAMINOPHEN IV (For NPO) 1,000 MG in EMPTY BAG 1 BAG IVPB PRN (18:18)
[2018-08-13] MEDS: risperiDONE 0.25 MG TAB PO SCH (20:20)
[2018-08-14] MEDS ORDERED: KETOROLAC 30 MG/ML 1 ML VIAL IVP SCH
[2018-08-14] MEDS: BENADRYL TOPICAL SCH ×2 (00:08→07:32)
[2018-08-14] MEDS: LORazepam 2 MG/ML INJ IV PRN (00:09)
[2018-08-14] MEDS: KETOROLAC 30 MG/ML 1 ML VIAL IVP PRN ×2 (04:37→14:08)
[2018-08-14] MEDS: HYDROCORTISONE SUCCINATE 100 MG/2 ML VIAL IV SCH (07:33)
[2018-08-14] MEDS: METHIMAZOLE 5 MG TAB PO SCH ×2 (07:34→15:31)
[2018-08-14] MEDS: risperiDONE 0.25 MG TAB PO SCH (07:34)
[2018-08-14] MEDS: GABAPENTIN 300 MG CAP PO SCH ×2 (07:34→15:32)
[2018-08-14] MEDS: CARVEDILOL 3.125 MG TAB PO SCH (07:34)
[2018-08-14] MEDS: LISINOPRIL 5 MG TAB PO SCH (07:34)
[2018-08-14] MEDS: HEPARIN SODIUM,PORCINE 5,000 UNIT/ML 1 ML VIAL SQ SCH (07:35)
[2018-08-14] MEDS: NICOTINE 21MG/24HR PATCH TRANSDERM SCH (07:36)
[2018-08-14] MEDS: IPRATROPIUM 0.5 MG/2.5 ML NEBU INHALATION SCH ×3 (07:44→16:04)
[2018-08-14] MEDS: FORMOTEROL FUMARATE 20 MCG/2 ML NEBU INHALATION SCH (07:44)
[2018-08-14 07:58] LABS: Anisocytosis Slight; Basophils % (A) 0 %; Eosinophils % (A) 0 %; HCT 37.1 % (34.0-46.0); HGB 11.2 gm/dL (11.4-16.0); Hypochromasia Marked; Lymphocytes % (A) 26 %; MCHC 30.2 g/dL (31.0-37.0); Mean Platelet Volume 7.5; Monocytes # (A) 0.3 k/uL (0-1.0); Monocytes % (A) 4 %; Neutrophils # (A) 5.3 k/uL (1.3-7.7); Neutrophils % (A) 69 %; Platelet Count 233 k/uL (150-450); RBC 4.15 m/uL (3.80-5.40); RDW 16.3 % (11.5-15.5); WBC 7.7 k/uL (3.8-10.6)
[2018-08-14 07:59] LABS: MCV 89.4 fL (80.0-100.0)
[2018-08-14] MEDS: SODIUM CHLORIDE 0.9% 1,000 ML IV SCH ×2 (09:23→14:18)
[2018-08-14] MEDS: SODIUM CHLORIDE 0.9% 1,000 ML with POTASSIUM CHLORIDE 20 MEQ, MVI, ADULT NO.4 WITH VIT ... IV SCH ×5 (09:23)
[2018-08-14 09:24] LABS: ALT 31 U/L (9-52); AST 25 U/L (14-36); Albumin 3.2 g/dL (3.5-5.0); Alkaline Phosphatase 96 U/L (38-126); Anion Gap 9 mmol/L; Blood Urea Nitrogen 12 mg/dL (7-17); Calcium 8.6 mg/dL (8.4-10.2); Carbon Dioxide 21 mmol/L (22-30); Chloride 112 mmol/L (98-107); Glucose 202 mg/dL (74-99); Potassium 3.6 mmol/L (3.5-5.1); Sodium 142 mmol/L (137-145); Total Bilirubin 0.3 mg/dL (0.2-1.3); Total Protein 5.7 g/dL (6.3-8.2)
[2018-08-14 12:19] VITALS: BP 144/73; PULSE 80; TEMP 98.2
[2018-08-14] MEDS: THIAMINE 100 MG TAB PO SCH (12:24)
[2018-08-14] MEDS: MULTIVITAMINS, THERA 1 EACH TAB PO SCH (12:24)
--- NOTE | 2018-08-14 12:26 | P.PN ---
Subjective Progress Note Date: 08/14/18 Principal diagnosis: Mood disorder and substance abuse Now detox from alcohol stable mood Objective - Vital Signs Vital signs: Vital Signs Temp 98.2 F 08/14/18 12:18 Pulse 80 08/14/18 12:18 Resp 16 08/14/18 12:18 BP 144/73 08/14/18 12:18 Pulse Ox 98 08/14/18 12:18 Intake & Output 08/13/18 08/14/18 08/14/18 18:59 06:59 18:59 Intake Total 1280 1670 240 Balance 1280 1670 240 Weight 54.431 kg Intake: Intake, IV Titration 800 480 Amount Sodium Chloride 0.9% 1, 800 000 ml @ 100 mls/hr IV . Q10H [facility] Rx#:[id number] Sodium Chloride 0.9% 1, 480 000 ml @ 60 mls/hr IV . Q17H2M [facility] with Potassium Chloride 20 meq with Mvi , Adult No.4 with Vit K 10 ml with Thiamine 100 mg with Folic Acid 1 mg Rx#:[id number] Oral 480 1190 240 Other: Voiding Method Toilet Toilet Toilet # Voids 1 2 - Labs CBC & Chem 7: 08/14/18 07:09 08/14/18 08:44 Labs: Abnormal Lab Results - Last 24 Hours (Table) 08/14/18 08/14/18 Range/Units 07:09 08:44 Hgb 11.2 L (11.4-16.0) gm/dL MCHC 30.2 L (31.0-37.0) g/dL RDW 16.3 H (11.5-15.5) % Chloride 112 H (98-107) mmol/L Carbon Dioxide 21 L (22-30) mmol/L Glucose 202 H (74-99) mg/dL Total Protein 5.7 L (6.3-8.2) g/dL Albumin 3.2 L (3.5-5.0) g/dL Microbiology - Last 24 Hours (Table) 08/11/18 13:30 Blood Culture - Preliminary Blood No Growth after 48 hours Assessment and Plan Assessment: HPI: This a 47-year-old female presents emergency department via EMS for altered mental status. Patient reportedly relapsed on alcohol intake. Patient was found to have alcohol with her by . They do state that she was is intoxicated and this is causing her to be altered though she has not had any more alcohol and she's had no improvement. She cannot complete a sentence she is only moaning and groaning. It is unclear she actually fell or had some sort of injury. It is unclear she's actually taking her medications as directed. She does have known psychiatric disorders, blood pressure issues, adrenal insufficiency. Patient's had no reported fever they have noticed that she's not had any urine output or any bowel movements. Patient cannot provide any information. - Related Data Home Medications Medication Instructions Recorded Confirmed Hydrocortisone [Cortef] 5 mg PO HS 09/25/16 08/11/18 Hydrocortisone [Cortef] 15 mg PO QAM 09/25/16 08/11/18 Ergocalciferol (Vitamin D2) 50,000 unit PO MO 08/11/18 08/11/18 [Drisdol] Glycopyrrolate/Formoterol Fum 2 puff INHALATION RT-BID 08/11/18 08/11/18 [Bevespi Aerosphere Inhaler] Lisinopril [Prinivil] 5 mg PO DAILY 08/11/18 08/11/18 Methimazole [Tapazole] 5 mg PO Q8H 08/11/18 08/11/18 Modafinil [Provigil] 200 mg PO DAILY 08/11/18 08/11/18 Sennosides [Senna] 8.6 mg PO DAILY PRN 08/11/18 08/11/18 cloNIDine HCL [Catapres] 0.1 mg PO HS 08/11/18 08/11/18 Allergies Allergy/AdvReac Type Severity Reaction Status Date / Time No Known Allergies Allergy Verified 01/15/17 11:28 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 ",ADRENAL INSUFFICIENCY, hx ULCER, "reaxctive"HYPOGLYCEMIA, herniated discs L4- L5, spondylosis spine, spurs in back, neck pain, heart murmer, varicose veins, IBS, History of Any Multi-Drug Resistant Organisms: None Reported Past Surgical History: Bariatric Surgery, Cholecystectomy, Hernia Repair, Uterine Ablation Additional Past Surgical History / Comment(s): ROUY EN Y GASTRIC SURGERY, laparoscopy, Past Anesthesia/Blood Transfusion Reactions: No Reported Reaction Past Psychological History: Anxiety, Bipolar, Depression, PTSD Smoking Status: Current every day smoker Past Alcohol Use History: Abuse Past Drug Use History: Unable to Obtain - Past Family History Mother Family Medical History: Chest Pain / Angina, Myocardial Infarction ([place]) Additional Family Medical History / Comment(s): Mother is an alcoholic. She has heart problems. Had open heart surgery. Father Additional Family Medical History / Comment(s): Father is an alcoholic. Brother(s) Family Medical History: Cancer Additional Family Medical History / Comment(s): TESTICULAR. Mental Status Examination - This is a 47-year-old female was brought in by her who was found intoxicated and did not know whether she had a seizure or not. The patient presents alert, pleasant, and cooperative. There calmly seated without any agitated behavior. She reports that [her] mood is good. Affect is congruent and euthymic. She[] deny having any suicidal or homicidal ideation intent or plan. [Her] denies any auditory or visual hallucinations. There is no evidence of any delusional thought content. [Her] thought process is linear and goal-directed. [Her] speech is fluent and nonpressured. [Her] memory and concentration is grossly intact for the purposes of this session. Psychiatric impression: Alcohol use disorder severe now resolved Psychiatric recommendations: Able to be discharge Thank you for the consult Markus Monaco D.O. PhD (1) Major depression Current Visit: No Status: Acute Code(s): F32.9 - MAJOR DEPRESSIVE DISORDER, SINGLE EPISODE, UNSPECIFIED SNOMED Code(s): 399554723 Time with Patient: Less than 30
--- NOTE | 2018-08-14 14:18 | P.DS ---
Providers Date of admission: 08/11/18 15:39 Expected date of discharge: 08/14/18 Attending physician: Christopher Fuchs Consults: 08/11/18 15:14 Consult Physician Urgent Consulting Provider: Markus Monaco Consult Reason/Comments: Altered mental status, history of psychiatric disorders Do you want consulting provider notified?: Already Contacted 08/11/18 15:47 Consult Physician Urgent Consulting Provider: Anum Fall Consult Reason/Comments: ams Do you want consulting provider notified?: Yes Primary care physician: Stated None Hospital Course: Final Diagnoses -Alcohol withdrawal, resolved -Acute alcoholic hepatitis expected to improve with cessation of alcohol -COPD without any significant exacerbation -Fibromyalgia -Anxiety bipolar and post traumatic stress disorder: Patent management as per psychiatric. Hospital course:47-year-old admitted for alcohol withdrawal. Patient doesn' t have any significant withdrawal symptoms patient received Ativan and sleeping and unable to provide much of history to me. Patient was evaluated by neurology and patient will undergo EEG. Patient appears to acute and chronic metabolic encephalopathy from alcoholism. Patient has significant psychiatric issues has stopped taking medications psychiatric is evaluating for possible admission to inpatient psych.Petitioned by [facility] for mental health unit. No significant withdrawal. Sitter maintained at bedside. Anxiety, paranoia present. Reevaluated by psychiatry, patient is cleared for discharge home. Patient is being discharged home in a stable condition with guarded prognosis. PHYSICAL EXAMINATION: GENERAL: Patient is alert and oriented 2, no acute distress HEENT: Pupils are round and equally reacting to light. EOMI. No scleral icterus. No conjunctival pallor. Normocephalic, atraumatic. No pharyngeal erythema. No thyromegaly. CARDIOVASCULAR: S1 and S2 present. No murmurs, rubs, or gallops. PULMONARY: Chest is clear to auscultation, no wheezing or crackles. ABDOMEN: Soft, nontender, nondistended, normoactive bowel sounds. No palpable organomegaly. MUSCULOSKELETAL: No joint swelling or deformity. EXTREMITIES: No cyanosis, clubbing, or pedal edema. NEUROLOGICAL: Gross neurological examination did not reveal any focal deficits. Speech clear SKIN: No rashes. The impression and plan of care has been dictated as directed. : I performed a history and examination of this patient, discussed the same with the dictator. I agree with the dictator's note ,documented as a scribe. Any additional findings or plans will be noted. Time taken: 35 minutes Patient Condition at Discharge: Stable Plan - Discharge Summary Discharge Rx Participant: Yes New Discharge Prescriptions: New Nicotine 21Mg/24Hr Patch [Habitrol] 1 patch TRANSDERM DAILY patch Acetaminophen Tab [Tylenol] 650 mg PO Q6HR PRN tab PRN Reason: Fever And/ Or Pain Folic Acid 1 mg PO DAILY #1 tablet Gabapentin [Neurontin] 600 mg PO TID cap Multivitamins, Thera [Multivitamin (formulary)] 1 each PO DAILY@1200 tab risperiDONE [RisperDAL] 0.25 mg PO BID tab Thiamine [Vitamin B-1] 100 mg PO DAILY tab Albuterol Inhaler [Ventolin Hfa Inhaler] 2 puff INHALATION RT-Q6H PRN #1 inhaler PRN Reason: Shortness Of Breath Carvedilol [Coreg] 3.125 mg PO BID-W/MEALS tab LORazepam [Ativan] 0.5 mg PO TID PRN 3 Days #9 tab PRN Reason: Anxiety Continue Hydrocortisone [Cortef] 5 mg PO HS Hydrocortisone [Cortef] 15 mg PO QAM Glycopyrrolate/Formoterol Fum [Bevespi Aerosphere Inhaler] 2 puff INHALATION RT-BID Ergocalciferol (Vitamin D2) [Drisdol] 50,000 unit PO MO Methimazole [Tapazole] 5 mg PO Q8H Lisinopril [Prinivil] 5 mg PO DAILY Sennosides [Senna] 8.6 mg PO DAILY PRN PRN Reason: Constipation Discontinued Modafinil [Provigil] 200 mg PO DAILY cloNIDine HCL [Catapres] 0.1 mg PO HS Discharge Medication List Hydrocortisone [Cortef] 5 mg PO HS 09/25/16 [History] Hydrocortisone [Cortef] 15 mg PO QAM 09/25/16 [History] Ergocalciferol (Vitamin D2) [Drisdol] 50,000 unit PO MO 08/11/18 [History] Glycopyrrolate/Formoterol Fum [Bevespi Aerosphere Inhaler] 2 puff INHALATION RT- BID 08/11/18 [History] Lisinopril [Prinivil] 5 mg PO DAILY 08/11/18 [History] Methimazole [Tapazole] 5 mg PO Q8H 08/11/18 [History] Sennosides [Senna] 8.6 mg PO DAILY PRN 08/11/18 [History] Acetaminophen Tab [Tylenol] 650 mg PO Q6HR PRN tab 08/13/18 [Rx] Albuterol Inhaler [Ventolin Hfa Inhaler] 2 puff INHALATION RT-Q6H PRN #1 inhaler 08/13/18 [Rx] Carvedilol [Coreg] 3.125 mg PO BID-W/MEALS tab 08/13/18 [Rx] Folic Acid 1 mg PO DAILY #1 tablet 08/13/18 [Rx] Gabapentin [Neurontin] 600 mg PO TID cap 08/13/18 [Rx] LORazepam [Ativan] 0.5 mg PO TID PRN 3 Days #9 tab 08/13/18 [Rx] Multivitamins, Thera [Multivitamin (formulary)] 1 each PO DAILY@1200 tab [Rx] Nicotine 21Mg/24Hr Patch [Habitrol] 1 patch TRANSDERM DAILY patch 08/13/18 [Rx] Thiamine [Vitamin B-1] 100 mg PO DAILY tab 08/13/18 [Rx] risperiDONE [RisperDAL] 0.25 mg PO BID tab 08/13/18 [Rx] Follow up Appointment(s)/Referral(s): Dr. BRISEYDA Psychiatry [Other] - 1 Week Anum Fall MD [STAFF PHYSICIAN] - 2 Weeks (after dc from [facility]) None,Stated [Primary Care Provider] - 3 Days Activity/Diet/Wound Care/Special Instructions: [facility] cbc,bmp in am Discharge Disposition: TRANSFER TO PSYCH HOSP/UNIT
--- NOTE | 2018-08-14 20:33 | EEG ---
ELECTROENCEPHALOGRAM REPORT DATE OF EE08/14/2018. REFERRING PHYSICIAN: Dr. Fuchs CONSULTING/INTERPRETING PHYSICIAN: Dr. Sarkis Fall MD. ELECTROENCEPHALOGRAPHIC EXAMINATION REPORT: INDICATION FOR EXAMINATION: This patient is a 47-year-old female being evaluated for altered mental status and possible alcohol intoxication. The patient has history of alcohol-related seizures in the past. AGE: [age]. EEG FINDINGS: A routine 21 channel awake digital EEG recording was accomplished utilizing the 10-20 international system with bipolar and referential montages. The background activity in the most alert resting state consists of a low to medium amplitude, fairly well- developed and well sustained 6-7 Hz activity over the posterior head regions. This posterior rhythm attenuates to eye opening. There is a small amount of low amplitude 18-20 Hz beta activity seen maximally over the anterior head regions. Muscle and movement artifact was observed on a few occasions during the tracing. Hyperventilation was not performed. Photic stimulation at flash frequencies of 2-30 Hz produced a minimal occipital driving response. No epileptiform discharges were seen. IMPRESSION: This EEG is mildly abnormal in a diffuse fashion due to slight slowing of the EEG background. The EEG failed to reveal any focal, lateralized, or epileptiform abnormalities. Clinical correlation is recommended. MMODL / IJN: [id number] /
[2018-08-17] MEDS ORDERED: ERGOCALCIFEROL 50,000 UNIT CAP PO SCH (12:00)
== END 2018-08-14 15:55 | DRG 897 ==
LOC: EC 12:45 → 3NMEDONC 15:39
PROVIDERS: ADMIT Internal Medicine; ATTEND Internal Medicine
DX: F10.231 Alcohol dependence with withdrawal delirium (principal); E27.40 Unspecified adrenocortical insufficiency; F31.30 Bipolar disorder, current episode depressed, mild or moderate severity, unspecified; F10.221 Alcohol dependence with intoxication delirium; G31.2 Degeneration of nervous system due to alcohol; K70.10 Alcoholic hepatitis without ascites; T50.996A Underdosing of other drugs, medicaments and biological substances, initial encounter; Z91.128 Patient's intentional underdosing of medication regimen for other reason; E86.0 Dehydration; M54.2 Cervicalgia; F43.10 Post-traumatic stress disorder, unspecified; M79.7 Fibromyalgia; M19.90 Unspecified osteoarthritis, unspecified site; J44.9 Chronic obstructive pulmonary disease, unspecified; M47.9 Spondylosis, unspecified; K58.9 Irritable bowel syndrome, unspecified; M51.26 Other intervertebral disc displacement, lumbar region; I83.90 Asymptomatic varicose veins of unspecified lower extremity; G40.909 Epilepsy, unspecified, not intractable, without status epilepticus; F17.210 Nicotine dependence, cigarettes, uncomplicated; Y90.1 Blood alcohol level of 20-39 mg/100 ml; Z71.6 Tobacco abuse counseling; Z87.11 Personal history of peptic ulcer disease; Z79.890 Hormone replacement therapy; Z79.52 Long term (current) use of systemic steroids; Z79.899 Other long term (current) drug therapy; Z90.49 Acquired absence of other specified parts of digestive tract; Z87.440 Personal history of urinary (tract) infections; Z98.84 Bariatric surgery status; Z82.49 Family history of ischemic heart disease and other diseases of the circulatory system; Z81.1 Family history of alcohol abuse and dependence; Z80.43 Family history of malignant neoplasm of testis
CPT/HCPCS: 36415; 51702; 70450; 71046; 72125; 80053; 80178; 80306; 80320; 81003; 82140; 82550; 82553; 83735; 84443; 84484; 85025; 85610; 85730; 87040; 87086; 93005; 94640; 95816; 96361; 96372; 96374; 99285

== ENCOUNTER 2023-07-22 16:17 | Emergency (ER) | payer OTHER ==
[2023-07-22 16:34] VITALS: TEMP 98.8
--- NOTE | 2023-07-22 16:46 | ED ---
General Adult HPI - General Chief complaint: Extremity Injury, Upper Stated complaint: R Arm Injury Time Seen by Provider: 07/22/23 16:30 Source: patient, family, EMS, RN notes reviewed Mode of arrival: EMS Limitations: no limitations - History of Present Illness Initial comments: Patient is a pleasant 52-year-old female presenting to the emergency Department with right arm pain. Patient states she had a fall last night. Patient states she tripped. Patient landed on her right upper arm. Patient has discomfort in that area since that time. Discomfort is greatly increased with arm movement. No other area of injury or concern. No head injury or loss of consciousness. No neck or back pain. No history of similar problem previously. - Related Data Home Medications Medication Instructions Recorded Confirmed Hydrocortisone [Cortef] 5 mg PO HS 09/25/16 08/11/18 Hydrocortisone [Cortef] 15 mg PO QAM 09/25/16 08/11/18 Ergocalciferol (Vitamin D2) 50,000 unit PO MO 08/11/18 08/11/18 [Drisdol (50,000 Iu)] Glycopyrrolate/Formoterol Fum 2 puff INHALATION RT-BID 08/11/18 08/11/18 [Bevespi Aerosphere Inhaler] Sennosides [Senna] 8.6 mg PO DAILY PRN 08/11/18 08/11/18 methIMAzole [Tapazole] 5 mg PO Q8H 08/11/18 08/11/18 Previous Rx's Medication Instructions Recorded Acetaminophen Tab [Tylenol] 650 mg PO Q6HR PRN tab 08/13/18 Albuterol Inhaler [Ventolin Hfa 2 puff INHALATION RT-Q6H PRN #1 08/13/18 Inhaler] inhaler LORazepam [Ativan] 0.5 mg PO TID PRN 3 Days #9 tab 08/13/18 Multivitamins, Thera [Multivitamin 1 each PO DAILY@1200 tab 08/13/18 (formulary)] Nicotine 21Mg/24Hr Patch [Habitrol] 1 patch TRANSDERM DAILY patch 08/13/18 Folic Acid 1 mg PO DAILY #30 tablet 08/14/18 Gabapentin [Neurontin] 600 mg PO TID #90 tab 08/14/18 Thiamine [Vitamin B-1] 100 mg PO DAILY #30 tablet 08/14/18 carvediloL [Coreg] 3.125 mg PO BID #60 tablet 08/14/18 lisinopriL [Prinivil] 5 mg PO DAILY #30 tablet 08/14/18 risperiDONE [RisperDAL] 0.25 mg PO BID #60 tablet 08/14/18 Allergies Allergy/AdvReac Type Severity Reaction Status Date / Time No Known Allergies Allergy Verified 07/22/23 16:30 Review of Systems ROS Statement: Those systems with pertinent positive or pertinent negative responses have been documented in the HPI. ROS Other: All systems not noted in ROS Statement are negative. Constitutional: Denies: fever Eyes: Denies: eye pain ENT: Denies: ear pain Respiratory: Denies: cough, dyspnea Cardiovascular: Denies: chest pain Musculoskeletal: Reports: as per HPI. 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",ADRENAL INSUFFICIENCY, hx ULCER, "reaxctive"HYPOGLYCEMIA, herniated discs L4-L5, spondylosis spine, spurs in back, neck pain, heart murmer, uti-ecoli 2015, varicose veins, IBS,dx w/ms 6 months ago takes detaseron inj qod-last taken friday08-10-18 History of Any Multi-Drug Resistant Organisms: None Reported Past Surgical History: Bariatric Surgery, Cholecystectomy, Hernia Repair, Uterine Ablation Additional Past Surgical History / Comment(s): ROUY EN Y GASTRIC SURGERY, laparoscopy, Past Anesthesia/Blood Transfusion Reactions: No Reported Reaction Past Psychological History: Anxiety, Bipolar, Depression, PTSD Smoking Status: Former smoker Past Alcohol Use History: Abuse Past Drug Use History: Prescription Drug Abuse - Past Family History Mother Family Medical History: Chest Pain / Angina, Coronary Artery Disease (CAD) Additional Family Medical History / Comment(s): alcoholic Father History Unknown: Yes Additional Family Medical History / Comment(s): Father is an alcoholic. Brother(s) Family Medical History: Cancer Additional Family Medical History / Comment(s): TESTICULAR. General Exam Limitations: no limitations General appearance: alert, in no apparent distress Head exam: Present: normocephalic Eye exam: Present: normal appearance Neck exam: Present: normal inspection. Absent: tenderness Respiratory exam: Present: normal lung sounds bilaterally Cardiovascular Exam: Present: regular rate, normal rhythm Expanded Peripheral pulses: 2+: Radial (R) GI/Abdominal exam: Present: soft. Absent: tenderness Extremities exam: Present: tenderness (Right upper arm with swelling below the shoulder.), other (No tenderness to other areas of the arm. Other areas of the arm with full range of motion.). Absent: full ROM (Limited range of motion at the shoulder secondary to pain.) Neurological exam: Present: alert. Absent: motor sensory deficit Expanded Motor strength exam: RUE: 5 Psychiatric exam: Present: normal affect, normal mood Skin exam: Present: normal color. Absent: pallor Course Vital Signs 07/22/23 16:25 Temperature 98.8 F Pulse Rate 73 Respiratory 18 Rate Blood Pressure 139/84 O2 Sat by Pulse 97 Oximetry Medical Decision Making - Medical Decision Making Was pt. sent in by a medical professional or institution (, PA, MENSWEAR SALESPERSON, urgent care, hospital, or alf...) When possible be specific @ -No Did you speak to anyone other than the patient for history (EMS, parent, family, police, friend...)? What history was obtained from this source @ -Family is present and helps by history including that patient fell last night. Did you review nursing and triage notes (agree or disagree)? Why? @ -I reviewed and agree with nursing and triage notes Were old charts reviewed (outside hosp., previous admission, EMS record, old EKG, old radiological studies, urgent care reports/EKG's, alf records)? Report findings @ -No old charts were reviewed Differential Diagnosis (chest pain, altered mental status, abdominal pain women, abdominal pain men, vaginal bleeding, weakness, fever, dyspnea, syncope, headache, dizziness, GI bleed, back pain, seizure, CVA, palpatations, mental health, musculoskeletal)? @ -Differential Musculoskeletal Muscular strain, contusion, ligament sprain, fracture, arthritis, septic arthritis, bursitis, cellulitis, muscle spasm, nerve compression, DVT, arterial occlusion, herpes zoster, electrolyte abnormality, tumor.... This is not meant to be in all inclusive list EKG interpreted by me (3pts min.). @ -As above X-rays interpreted by me (1pt min.). @ -X-ray right humerus shows comminuted right proximal humerus fracture CT interpreted by me (1pt min.). @ -None done U/S interpreted by me (1pt. min.). @ -None done What testing was considered but not performed or refused? (CT, X-rays, U/S, labs)? Why? @ -None What meds were considered but not given or refused? Why? @ -None Did you discuss the management of the patient with other professionals (professionals i.e. , PA, MENSWEAR SALESPERSON, lab, RT, psych nurse, high school social science teacher, switch operators supervisor, teacher, correctional officer lieutenant, briefcase sewer)? Give summary @ -No Was smoking cessation discussed for >3mins.? @ -No Was critical care preformed (if so, how long)? @ -No Were there social determinants of health that impacted care today? How? (Homelessness, low income, unemployed, alcoholism, drug addiction, transportation, low edu. Level, literacy, decrease access to med. care, assisted, rehab)? @ -No Was there de-escalation of care discussed even if they declined (Discuss DNR or withdrawal of care, Hospice)? DNR status @ -No What co-morbidities impacted this encounter? (DM, HTN, Smoking, COPD, CAD, Cancer, CVA, ARF, Chemo, Hep., AIDS, mental health diagnosis, sleep apnea, morbid obesity)? @ -None Was patient admitted / discharged? Hospital course, mention meds given and route, prescriptions, significant lab abnormalities, going to OR and other pertinent info. @ -Patient reevaluated and updated. Patient is now receptive to pain medication and has an IV and therefore this will be provided. Patient will have sling placed. Patient will be discharged with follow-up with orthopedics. Undiagnosed new problem with uncertain prognosis? @ -No Drug Therapy requiring intensive monitoring for toxicity (Heparin, Nitro, Insulin, Cardizem)? @ -No Were any procedures done? @ -No Diagnosis/symptom? @ -Right proximal humerus fracture Acute, or Chronic, or Acute on Chronic? @ -Acute Uncomplicated (without systemic symptoms) or Complicated (systemic symptoms)? @ -default Side effects of treatment? @ -No Exacerbation, Progression, or Severe Exacerbation? @ -No Poses a threat to life or bodily function? How? (Chest pain, [place], [place], pneumonia, PE, COPD, DKA, ARF, appy, cholecystitis, CVA, Diverticulitis, Homicidal, Suicidal, threat to staff... and all critical care pts) @ -No Disposition Clinical Impression: Closed fracture of right proximal humerus Disposition: HOME SELF-CARE Condition: Stable Instructions (If sedation given, give patient instructions): Arm Fracture in Adults (ED) Additional Instructions: Please follow-up with orthopedics in the next couple days for recheck. Use sling. Return for increased pain, other areas of injury or concern or any worsening symptoms. Ice to affected area. Is patient prescribed a controlled substance at d/c from ED?: No Referrals: Da Khan MD [STAFF PHYSICIAN] - 1-2 days Herman Ho MD [STAFF PHYSICIAN] - 1-2 days Time of Disposition: 18:46
--- NOTE | 2023-07-22 17:39 | XR ---
EXAMINATION TYPE: XR humerus RT DATE OF EXAM: 07/22/2023 COMPARISON: None HISTORY: Fall, pain TECHNIQUE: 2 view right humerus FINDINGS: There is a comminuted fracture in the proximal diaphyseal right humerus. Distal numerous ap pears unremarkable. No additional fractures are evident. IMPRESSION: 1. Comminuted fracture proximal diaphyseal right humerus.
[2023-07-22] MEDS ORDERED: HYDROmorphone 1 MG/ML 1 ML SYRINGE IVP STA (18:41)
[2023-07-22] MEDS ORDERED: ACET/COD 300 MG/30 MG STARTER PACK 6 TAB BTL PO STA (18:42)
[2023-07-22 19:36] VITALS: BP 141/80; PULSE 80; RESP 20
== END 2023-07-22 19:33 | disposition home or self-care (01) ==
LOC: EC 16:17
DX: S42.201A Unspecified fracture of upper end of right humerus, initial encounter for closed fracture (principal); J44.9 Chronic obstructive pulmonary disease, unspecified; M19.90 Unspecified osteoarthritis, unspecified site; Z86.59 Personal history of other mental and behavioral disorders; Z87.891 Personal history of nicotine dependence; Z79.1 Long term (current) use of non-steroidal anti-inflammatories (NSAID); W01.0XXA Fall on same level from slipping, tripping and stumbling without subsequent striking against object, initial encounter
CPT/HCPCS: 99284

== ENCOUNTER 2023-07-26 17:46 | Emergency (ER) | payer OTHER ==
--- NOTE | 2023-07-26 20:03 | US ---
EXAMINATION TYPE: US venous doppler duplex UE RT DATE OF EXAM: 07/26/2023 COMPARISON: NONE CLINICAL INDICATION: Female, 52 years old with history of swelling; Patient has a broken humerus from fall x 5 days ago. Swelling. SIDE PERFORMED: Right Grayscale, color doppler, spectral doppler imaging performed of the deep veins of the upper extremiti es. There is normal flow, compressibility and vascular waveforms. Right Arm: Negative for DVT IMPRESSION: No evidence of DVT in the right upper extremity.
--- NOTE | 2023-07-26 20:23 | ED ---
Upper Extremity HPI - General Chief Complaint: Extremity Injury, Upper Stated Complaint: recheck Time Seen by Provider: 07/26/23 18:07 Source: patient Mode of arrival: ambulatory Limitations: no limitations - History of Present Illness Initial Comments: 52-year-old female presenting with chief complaint of swelling to the right hand. Patient was seen in the ER and 07/22/23 and diagnosed with proximal humerus fracture. Patient then followed up with orthopedics the following day. She was placed in a brace. Today the patient noticed increased swelling to the hand as well as purpleish discoloration. She states that her pain is well controlled. She has some mild numbness in the hand but still has full range of motion of the hand and sensation is intact. No other injury or trauma. No chest pain or difficulty breathing. - Related Data Home Medications Medication Instructions Recorded Confirmed Hydrocortisone [Cortef] 5 mg PO HS 09/25/16 08/11/18 Hydrocortisone [Cortef] 15 mg PO QAM 09/25/16 08/11/18 Ergocalciferol (Vitamin D2) 50,000 unit PO MO 08/11/18 08/11/18 [Drisdol (50,000 Iu)] Glycopyrrolate/Formoterol Fum 2 puff INHALATION RT-BID 08/11/18 08/11/18 [Bevespi Aerosphere Inhaler] Sennosides [Senna] 8.6 mg PO DAILY PRN 08/11/18 08/11/18 methIMAzole [Tapazole] 5 mg PO Q8H 08/11/18 08/11/18 Previous Rx's Medication Instructions Recorded Acetaminophen Tab [Tylenol] 650 mg PO Q6HR PRN tab 08/13/18 Albuterol Inhaler [Ventolin Hfa 2 puff INHALATION RT-Q6H PRN #1 08/13/18 Inhaler] inhaler LORazepam [Ativan] 0.5 mg PO TID PRN 3 Days #9 tab 08/13/18 Multivitamins, Thera [Multivitamin 1 each PO DAILY@1200 tab 08/13/18 (formulary)] Nicotine 21Mg/24Hr Patch [Habitrol] 1 patch TRANSDERM DAILY patch 08/13/18 Folic Acid 1 mg PO DAILY #30 tablet 08/14/18 Gabapentin [Neurontin] 600 mg PO TID #90 tab 08/14/18 Thiamine [Vitamin B-1] 100 mg PO DAILY #30 tablet 08/14/18 carvediloL [Coreg] 3.125 mg PO BID #60 tablet 08/14/18 lisinopriL [Prinivil] 5 mg PO DAILY #30 tablet 08/14/18 risperiDONE [RisperDAL] 0.25 mg PO BID #60 tablet 08/14/18 Allergies Allergy/AdvReac Type Severity Reaction Status Date / Time No Known Allergies Allergy Verified 07/26/23 17:57 Review of Systems ROS Statement: Those systems with pertinent positive or pertinent negative responses have been documented in the HPI. ROS Other: All systems not noted in ROS Statement are negative. Past Medical History Past Medical History: Chest Pain / Angina, COPD, Fibromyalgia, Osteoarthritis (OA), Seizure Disorder Additional Past Medical History / Comment(s): Seizure disorder-last known seizure 1 week ago, blurred vision bilaterally, "Born with a hole in her hea rt",ADRENAL INSUFFICIENCY, hx ULCER, "reaxctive"HYPOGLYCEMIA, herniated discs L4-L5, spondylosis spine, spurs in back, neck pain, heart murmer, uti-ecoli 2015, varicose veins, IBS,dx w/ms 6 months ago takes detaseron inj qod-last taken friday08-10-18 History of Any Multi-Drug Resistant Organisms: None Reported Past Surgical History: Bariatric Surgery, Cholecystectomy, Hernia Repair, Uterine Ablation Additional Past Surgical History / Comment(s): ROUY EN Y GASTRIC SURGERY, laparoscopy, Past Anesthesia/Blood Transfusion Reactions: No Reported Reaction Past Psychological History: Anxiety, Bipolar, Depression, PTSD Smoking Status: Former smoker Past Alcohol Use History: Abuse Past Drug Use History: Prescription Drug Abuse - Past Family History Mother Family Medical History: Chest Pain / Angina, Coronary Artery Disease (CAD) Additional Family Medical History / Comment(s): alcoholic Father History Unknown: Yes Additional Family Medical History / Comment(s): Father is an alcoholic. Brother(s) Family Medical History: Cancer Additional Family Medical History / Comment(s): TESTICULAR. General Exam Limitations: no limitations General appearance: alert, in no apparent distress Head exam: Present: atraumatic, normocephalic, normal inspection Eye exam: Present: normal appearance, EOMI Neck exam: Present: normal inspection, full ROM Respiratory exam: Present: normal lung sounds bilaterally. Absent: respiratory distress, wheezes, rales, rhonchi, stridor Cardiovascular Exam: Present: regular rate, normal rhythm, normal heart sounds. Absent: systolic murmur, diastolic murmur, rubs, gallop, clicks Right Elbow exam: Present: normal inspection. Absent: tenderness Forearm Wrist exam: Present: normal inspection. Absent: tenderness Hand Wrist exam: Present: full ROM, swelling, other (Dusky coloration). Absent: tenderness Vascular: Present: radial pulse (2+). Absent: vascular compromise Neurological exam: Present: alert, oriented X3 Psychiatric exam: Present: normal affect, normal mood Skin exam: Present: warm, dry, intact Course Vital Signs 07/26/23 07/26/23 17:54 20:31 Temperature 98.2 F 97.9 F Pulse Rate 80 72 Respiratory 18 16 Rate Blood Pressure 137/82 127/62 O2 Sat by Pulse 100 97 Oximetry Medical Decision Making - Medical Decision Making Was pt. sent in by a medical professional or institution (, PA, PACKAGE CHECKER, urgent care, hospital, or snf...) When possible be specific @ -[No] Did you speak to anyone other than the patient for history (EMS, parent, family, police, friend...)? What history was obtained from this source @ -[No] Did you review nursing and triage notes (agree or disagree)? Why? @ -[I reviewed and agree with nursing and triage notes] Were old charts reviewed (outside hosp., previous admission, EMS record, old EKG, old radiological studies, urgent care reports/EKG's, snf records)? Report findings @ -[No old charts were reviewed] Differential Diagnosis (chest pain, altered mental status, abdominal pain women, abdominal pain men, vaginal bleeding, weakness, fever, dyspnea, syncope, headache, dizziness, GI bleed, back pain, seizure, CVA, palpatations, mental health, musculoskeletal)? @ -Differential Musculoskeletal Muscular strain, contusion, ligament sprain, fracture, arthritis, septic arthritis, bursitis, cellulitis, muscle spasm, nerve compression, DVT, arterial occlusion, herpes zoster, electrolyte abnormality, tumor.... This is not meant to be in all inclusive list EKG interpreted by me (3pts min.). @ -[As above] X-rays interpreted by me (1pt min.). @ -[None done] CT interpreted by me (1pt min.). @ -[None done] U/S interpreted by me (1pt. min.). @ -Ultrasound negative for DVT What testing was considered but not performed or refused? (CT, X-rays, U/S, labs)? Why? @ -[None] What meds were considered but not given or refused? Why? @ -[None] Did you discuss the management of the patient with other professionals (professionals i.e. , PA, PACKAGE CHECKER, lab, RT, psych nurse, mental health social worker, ground support equipment mechanic, teacher, appeals officer, immigration case worker)? Give summary @ -[No] Was smoking cessation discussed for >3mins.? @ -[No] Was critical care preformed (if so, how long)? @ -[No] Were there social determinants of health that impacted care today? How? (Homelessness, low income, unemployed, alcoholism, drug addiction, transportation, low edu. Level, literacy, decrease access to med. care, fci, rehab)? @ -[No] Was there de-escalation of care discussed even if they declined (Discuss DNR or withdrawal of care, Hospice)? DNR status @ -[No] What co-morbidities impacted this encounter? (DM, HTN, Smoking, COPD, CAD, Cancer, CVA, ARF, Chemo, Hep., AIDS, mental health diagnosis, sleep apnea, morbid obesity)? @ -[None] Was patient admitted / discharged? Hospital course, mention meds given and route, prescriptions, significant lab abnormalities, going to OR and other pertinent info. @ -52-year-old female presenting with chief complaint of swelling to the right arm. Patient has a recent history of a proximal humerus fracture and has followed up with orthopedics, she is currently wearing a brace applied by orthopedics. Today she woke up with swelling to the hand as well as purpleish discoloration. On physical examination compartments are soft, radial pulses 2+, and feels warm. Patient has full range of motion of the hand and fingers. Patient states that she has some mild tingling in the hand, however she is able to sense sharp and light touch. Ultrasound is negative for DVT. Upon inspection of the brace appears that the brace had been applied too tightly, patient states when the brace was removed for the ultrasound she felt relief and also noticed the discoloration leaving her hand. Patient is educated on appropriate application of the brace and when it is appropriate to loosen the brace. Patient is educated on today's findings. Educated on alarms symptoms associated with compartment syndrome that should prompt reevaluation. Follow-up with PCP. Report back to ER with any new or worsening symptoms. Discussed return parameters and answered all questions. Patient conveyed verbal understanding and agreed to the plan. I discussed this case in detail with my attending Dr. Bolaños Undiagnosed new problem with uncertain prognosis? @ -[No] Drug Therapy requiring intensive monitoring for toxicity (Heparin, Nitro, Insulin, Cardizem)? @ -[No] Were any procedures done? @ -[No] Diagnosis/symptom? @ Proximal humerus fracture, swelling of the hand Acute, or Chronic, or Acute on Chronic? @ -Acute Uncomplicated (without systemic symptoms) or Complicated (systemic symptoms)? @ -uncomplicated Side effects of treatment? @ -[No] Exacerbation, Progression, or Severe Exacerbation? @ -[No] Poses a threat to life or bodily function? How? (Chest pain, [place], [place], pneumonia, PE, COPD, DKA, ARF, appy, cholecystitis, CVA, Diverticulitis, Homicidal, Suicidal, threat to staff... and all critical care pts) @ -[No] Disposition Clinical Impression: Closed fracture of right proximal humerus Disposition: HOME SELF-CARE Condition: Good Instructions (If sedation given, give patient instructions): Proximal Humerus Fracture (ED) Additional Instructions: Follow-up with PCP and orthopedics. Report back to ER with any new or worsening symptoms. Is patient prescribed a controlled substance at d/c from ED?: No Referrals: None,Stated [Primary Care Provider] - 1-2 days Time of Disposition: 20:23
[2023-07-26 20:35] VITALS: BP 127/62; PULSE 72; RESP 16; TEMP 97.9
== END 2023-07-26 20:32 | disposition home or self-care (01) ==
LOC: EC 17:46
DX: S42.201A Unspecified fracture of upper end of right humerus, initial encounter for closed fracture (principal); J44.9 Chronic obstructive pulmonary disease, unspecified; F41.9 Anxiety disorder, unspecified; F31.9 Bipolar disorder, unspecified; Z79.899 Other long term (current) drug therapy; Z87.891 Personal history of nicotine dependence; X58.XXXA Exposure to other specified factors, initial encounter
CPT/HCPCS: 99283